=== PATIENT | female | born 2000 | race Caucasian/White ===

== ENCOUNTER → 2021-04-16 10:16 | Outpatient (BNVA) | payer OTHER, SELFPAY | PROVIDERS: Visit Provider Physician Assistant | DX: S46.911A Strain of unspecified muscle, fascia and tendon at shoulder and upper arm level, right arm, initial encounter (principal); X50.1XXA Overexertion from prolonged static or awkward postures, initial encounter | CPT/HCPCS: 73030; 99203 ==

== ENCOUNTER → 2021-04-25 13:13 | Outpatient (BNVA) | payer OTHER, SELFPAY | PROVIDERS: Visit Provider Physician Assistant | DX: S49.91XD Unspecified injury of right shoulder and upper arm, subsequent encounter (principal); X58.XXXD Exposure to other specified factors, subsequent encounter | CPT/HCPCS: 99213 ==

== ENCOUNTER → 2021-05-09 13:05 | Outpatient (BNVA) | payer OTHER, SELFPAY | PROVIDERS: Visit Provider Physician Assistant | DX: S49.91XD Unspecified injury of right shoulder and upper arm, subsequent encounter (principal); X58.XXXD Exposure to other specified factors, subsequent encounter | CPT/HCPCS: 99213 ==

== ENCOUNTER 2021-05-16 14:22 | Outpatient (REF) | payer OTHER, SELFPAY ==
--- NOTE | ~2021-05-16 | MR_ITS ---
EXAMINATION: MR SHOULDER WITHOUT CONTRAST, RIGHT CLINICAL INFORMATION: pain COMPARISON: X-rays of right shoulder March 2021 TECHNIQUE: MRI of the shoulder without contrast was performed on a high-field scanner. FINDINGS: ROTATOR CUFF: Intact. No muscle atrophy or fatty infiltration. BICEPS: Normal. CORACOACROMIAL ARCH: The undersurface of the acromion is curved with no subacromial spur. The acromioclavicular joint is normal. LABRUM/CAPSULE: Normal. GLENOHUMERAL JOINT/MARROW: Normal. MR/MR shoulder RT wo con IMPRESSION: Normal MRI of the right shoulder
== END 2021-05-16 14:23 | disposition home or self-care (01) ==
LOC: HO.MRI 14:22
PROVIDERS: Visit Provider Internal Medicine
DX: M25.511 Pain in right shoulder (principal)
CPT/HCPCS: 73221

== ENCOUNTER → 2021-05-23 14:09 | Outpatient (BNVA) | payer OTHER, SELFPAY | PROVIDERS: Visit Provider Physician Assistant | DX: M25.511 Pain in right shoulder (principal) | CPT/HCPCS: 99213 ==

== ENCOUNTER → 2021-06-13 14:28 | Outpatient (BNVA) | payer OTHER, SELFPAY | PROVIDERS: Visit Provider Physician Assistant | DX: S49.91XD Unspecified injury of right shoulder and upper arm, subsequent encounter (principal); X58.XXXD Exposure to other specified factors, subsequent encounter | CPT/HCPCS: 99213 ==

== ENCOUNTER 2022-07-26 13:51 | Outpatient (REF) | payer OTHER, SELFPAY ==
[2022-07-26 14:41] LABS: Influenza A PCR NEGATIVE (Negative); Influenza B PCR NEGATIVE (Negative); Resp Syncy Virus RNA Qual PCR NEGATIVE (Negative); SARS COV2 PCR INHOUSE NEGATIVE (Negative)
== END 2022-07-26 13:52 | disposition home or self-care (01) ==
LOC: HO.LNP 13:51
PROVIDERS: Visit Provider Nurse Practitioner Family
DX: J06.9 Acute upper respiratory infection, unspecified (principal); Z20.822 Contact with and (suspected) exposure to COVID-19
CPT/HCPCS: 0241U

== ENCOUNTER 2022-09-16 10:11 | Outpatient (REF) | payer OTHER, SELFPAY ==
[2022-09-16 14:04] LABS: MANUAL DIFF FLAG NO
[2022-09-16 14:08] LABS: Basophils Percent Auto 0.8 % (0-2); Eosinophils Absolute Auto 0.2 X10*3/uL (0.0-0.4); Eosinophils Percent Auto 3.4 % (0-4); Hematocrit 37.7 % (37.0-47.0); Hemoglobin 12.4 g/dl (12.0-16.0); Imm Gran Abs Auto 0.01 X10*3/uL (0.00-0.03); Imm Gran Pct Auto 0.2 % (0.0-0.4); Lymphocytes Absolute Auto 2.4 X10*3/uL (1.2-4.9); Lymphocytes Percent Auto 47.9 % (20-40); Mean Corpuscular HGB Conc 32.9 g/dl (31.0-35.0); Mean Corpuscular Hemoglobin 28.6 pg (27.0-33.0); Mean Corpuscular Volume 87.1 fL (80.0-98.0); Mean Platelet Volume 9.7 fL (9.4-12.3); Monocytes Absolute Auto 0.5 X10*3/uL (0.1-1.2); Monocytes Percent Auto 8.9 % (2-11); Neutrophils Percent Auto 38.8 % (45-73); Platelet Count 323 X10*3/uL (160-400); Red Blood Count 4.33 X10*6/uL (4.20-5.50); Red Cell Distribution Width 12.9 % (11.0-16.0); White Blood Count 5.1 X10*3/uL (4.8-10.8)
[2022-09-16 14:24] LABS: Alanine Aminotransferase 12 U/L (0-31); Albumin Level 3.9 g/dL (3.5-5.0); Alkaline Phosphatase 57 U/L (39-117); Anion Gap 13 (12-20); Aspartate Amino Transferase 13 U/L (5-31); Bilirubin Total 0.4 mg/dL (0.0-1.0); Blood Urea Nitrogen 12 mg/dL (9-16); Calcium 9.6 mg/dL (8.4-10.2); Carbon Dioxide 22 mmol/L (22-29); Chloride 108 mmol/L (96-108); Cholesterol 180 mg/dL; Estimated Glomerular Filt Rate > 60; Glucose Fasting 88 mg/dL (60-99); HDL Cholesterol 64 mg/dL; Iron 56 mcg/dL (30-160); LDL Cholesterol Calculated 101 mg/dl; Percent Iron Saturation 13 % (15-50); Potassium 4.1 mmol/L (3.3-5.1); Sodium 139 mmol/L (135-145); Total Iron Binding Capacity 444 mcg/dL (228-428); Total Protein 6.8 g/dL (6.5-8.0); Triglycerides 78 mg/dL; Unsaturated Iron Binding 388 ug/dL
[2022-09-16 14:40] LABS: Syphilis Screen Nonreactive (Nonreactive)
[2022-09-16 14:48] LABS: TSH reflex Free T4 2.24 uIU/mL (0.32-4.0)
[2022-09-17 08:05] LABS: HBS Num1 1.05 mIU/mL (0-7.99); HBc Num1 0.25 S/CO (0.00-0.79); HBsAGNum1 0.26 S/CO (0.00-0.99); HIV AB/AG Nonreactive (Nonreactive); HIV Num 1 0.06 S/CO (0.00-0.99); Hepatitis B Core Antibody Nonreactive (Nonreactive); Hepatitis B Surface Antigen Negative (Negative); ~HepC Num1 0.12 S/CO (0.00-0.79); ~Hepatitis B Surface Antibody NONREACTIVE (Nonreactive); ~Hepatitis C Antibody Nonreactive (Nonreactive)
== END 2022-09-16 10:12 | disposition home or self-care (01) ==
LOC: HO.WFDLDS 10:11
PROVIDERS: Visit Provider Family Medicine
DX: Z00.00 Encounter for general adult medical examination without abnormal findings (principal); Z11.3 Encounter for screening for infections with a predominantly sexual mode of transmission; Z86.39 Personal history of other endocrine, nutritional and metabolic disease
CPT/HCPCS: 36415; 80053; 80061; 83540; 84443; 85025; 86704; 86706; 86780; 86803; 87340; 87389

== ENCOUNTER 2022-09-17 10:16 | Outpatient (REF) | payer OTHER, SELFPAY ==
[2022-09-17 14:10] LABS: Appearance Urine Cloudy; Color Urine Yellow; Glucose Urine UA Negative (Negative); Leukocyte Esterase Urine Moderate (2+) (Negative); Nitrite Urine Negative (Negative); Specific Gravity - Urine >= 1.030 (1.005-1.025); UMIC TRIGGER UA YES; Urine Blood Trace (Negative); Urine Ketones Negative (Negative); Urine Protein Negative (Neg-Trace)
[2022-09-17 14:23] LABS: Bacteria Urine 4+ (None Seen); Calcium Oxalate Crystals Urine Present; Squamous Epithelial Cell Urine >20 /HPF (0-2); WBC Urine >50 /HPF (0-5)
== END 2022-09-17 10:17 | disposition home or self-care (01) ==
LOC: HO.WFDLNP 10:16
PROVIDERS: Visit Provider Family Medicine
DX: Z00.00 Encounter for general adult medical examination without abnormal findings (principal)
CPT/HCPCS: 81001

== ENCOUNTER 2023-02-04 12:45 | Emergency (ER) | payer OTHER, SELFPAY ==
[2023-02-04 13:14] VITALS: BP 126/80; PULSE 67; RESP 16; TEMP 37.2; O2SAT 99; BMI 23.0
--- NOTE | 2023-02-04 13:16 | ED.FEMALEGU ---
HPI - Female Genitourinary General Chief complaint: Vaginal Bleeding <KENNETH Hernandez - Last Filed: 02/04/23 13:17> Stated complaint: Vag Bleed <KENNETH Hernandez - Last Filed: 02/04/23 13:17> Time Seen by Provider: 02/04/23 14:31 <KENNETH Hernandez - Last Filed: 02/04/23 13:17> Source: patient <KENNETH Woodward - Last Filed: 02/04/23 14:55> Mode of arrival: ambulatory <KENNETH Woodward Last Filed: 02/04/23 14:55> Limitations: no limitations <KENNETH Woodward Last Filed: 02/04/23 14:55> History of Present Illness HPI Narrative: 22 yo female presents to the ER for evaluation of vaginal bleeding that started last night. She states she had her usual 7 day period for the month that started 01/21 and ended 01/28. She has a history of heavy vaginal bleeding during her regular menses, and it is usually 7 days in duration. She is on OCP which has helped her pain with her periods. She does not have pain like she used to before OCP. She currently has no pain, just light bleeding. No weakness, dizziness, SOB. No hx anemia. She does not have [employer] S[employer]IATE. No hx . She denies vaginal discharge or concern for STI. <KENNETH Woodward - Last Filed: 02/04/23 14:55> MD elicited complaint: vaginal bleeding <KENNETH Woodward Last Filed: 02/04/23 14:55> Onset (ago): day(s) (1) <KENNETH Woodward Last Filed: 02/04/23 14:55> Location of symptoms: vaginal <KENNETH Woodward Last Filed: 02/04/23 14:55> Severity: moderate <KENNETH Woodward Last Filed: 02/04/23 14:55> Consistency: intermittent <KENNETH Woodward Last Filed: 02/04/23 14:55> Vaginal discharge: none <KENNETH Woodward Last Filed: 02/04/23 14:55> Vaginal bleeding: scant <KENNETH Woodward - Last Filed: 02/04/23 14:55> Exacerbating factors: none <KENNETH Woodward - Last Filed: 02/04/23 14:55> Relieving factors: none <KENNETH Woodward - Last Filed: 02/04/23 14:55> Associated symptoms: denies other symptoms <KENNETH Woodward - Last Filed: 02/04/23 14:55> Treatment prior to arrival: none <KENNETH Woodward - Last Filed: 02/04/23 14:55> Sexual activity: Yes <KENNETH Woodward - Last Filed: 02/04/23 14:55> Possible : unsure if <EKNNETH Woodward - Last Filed: 02/04/23 14:55> Date of Last Menstrual Period: 01/21/23 <KENNETH Woodward - Last Filed: 02/04/23 14:55> Related Data Home medications: Home Medications Medication Instructions Recorded Confirmed desogestrel 0.15 mg-ethinyl 1 tab PO QAM 08/07/22 estradiol 0.03 mg tablet (Enskyce) melatonin 10 mg capsule 10 mg PO BEDTIME PRN 08/07/22 <KENNETH Hernandez - Last Filed: 02/04/23 13:17> Allergies/Adverse reactions: Allergies Allergy/AdvReac Type Severity Reaction Status Date / Time No Known Allergies Allergy Verified 10/11/22 14:01 <KENNETH Hernandez - Last Filed: 02/04/23 13:17> Review of Systems Review of Systems: Yes all other systems are reviewed and are negative <KENNETH Woodward - Last Filed: 02/04/23 14:55> PMFSH Past Medical History Date of Last Menstrual Period: 01/21/23 <KENNETH Woodward - Last Filed: 02/04/23 14:55> Social History Social History: Social History Patient Tobacco Use Status: Never used Tobacco e-Cigarette/Vaping Use: Never Used Second Hand Smoke Exposure: No Advance Directives: No service: No Current occupational status: employed Cognitive needs: No Hearing needs: No Vision needs: No <KENNETH Hernandez - Last Filed: 02/04/23 13:17> Physical Exam Vital Signs: Vital Signs: Last Vital Signs Temp 98.9 F 02/04/23 13:14 Pulse 67 02/04/23 13:14 Resp 16 02/04/23 13:14 BP 126/80 02/04/23 13:14 Pulse Ox 99 02/04/23 13:14 O2 Del Method Room Air 02/04/23 13:14 BMI result Body Mass Index 23.0 <KENNETH Hernandez - Last Filed: 02/04/23 13:17> Vital Signs: Last Vital Signs Temp 98.9 F 02/04/23 13:14 Pulse 67 02/04/23 13:14 Resp 16 02/04/23 13:14 BP 126/80 02/04/23 13:14 Pulse Ox 99 02/04/23 13:14 O2 Del Method Room Air 02/04/23 13:14 BMI result Body Mass Index 23.0 <KENNETH Woodward - Last Filed: 02/04/23 14:55> Appearance: Alert. Oriented X3. No acute distress. Head: normocephalic, atraumatic. Eyes: Pupils equal, round and reactive to light. ENT: Pharynx normal. No tonsillar swelling or exudate. Neck: Normal inspection. Neck supple. CVS: Normal heart rate and rhythm. Pulses normal. Respiratory: No respiratory distress. Breath sounds normal. Abdomen: Soft and nontender. +BS x4 Pelvic: normal exernal inspection. vaginal canal with light brown discharge, os closed, no active bleeding Skin: Skin warm and dry. Normal skin color. Normal skin turgor. No rashes. Extremities: No lower extremity edema. No joint swelling. Neuro/psych: Oriented X 3. No motor deficit. No sensory deficit. CN II-XII intact. Normal speech and cognition. <KENNETH Woodward - Last Filed: 02/04/23 14:55> Course Course Course Narrative: This is an RME: Additional HPI, ROS, PE not included below will be deferred to primary provider. 22-year-old female presents to the emergency department for evaluation of vaginal bleeding since 19:00 yesterday, patient tells me she is going through 4 pads in 24 hours. She reports her period ended last week and she typically does not get irregular cycles is concerned since she is bleeding again. Does not think she is . She is on oral contraceptives. Sometimes gets intermittent suprapubic tenderness. Pain-free at this time. Denies nausea, vomiting, headache, vision changes, dizziness, weakness, fevers and chills. Physical exam benign. Hemodynamically stable. Plan basic labs. HCG. <KENNETH Hernandez - Last Filed: 02/04/23 13:17> Medical Decision Making Medical Decision Making [facility] Narrative: 22 yo female presenting with abnormal vaginal bleeding 1 week after her menstrual cycle. No active bleeding on exam today. Scant amount of of old blood in vaginal canal no active bleeding or discharge. H/H stable, no anemia. She is already on OCP. She does not have [employer]ATE. She is stable for d/c home with plan to continue OCP adn f/u with [employer] S[employer]IOR ASSOCIATE for full exam and other treatment options. <KENNETH Woodward - Last Filed: 02/04/23 14:55> Differential Diagnosis Differential Diagnoses: The differential diagnosis associated with the presentation includes <KENNETH Woodward - Last Filed: 02/04/23 14:55> dysfunction uterine bleeding. , anemia, menometorrhagia <KENNETH Woodward - Last Filed: 02/04/23 14:55> Lab Data [facility] Lab Attestation statement: I reviewed the patient's lab results. <KENNETH Woodward - Last Filed: 02/04/23 14:55> no anemia. <KENNETH Woodward - Last Filed: 02/04/23 14:55> Result Diagrams: 02/04/23 13:50 02/04/23 13:50 <KENNETH Hernandez - Last Filed: 02/04/23 13:17> Labs: Lab Results 02/04/23 02/04/23 Range/Units 13:50 13:50 WBC 5.8 (4.8-10.8) X10*3/uL RBC 4.71 (4.20-5.50) X10*6/uL Hgb 13.8 (12.0-16.0) g/dl Hct 41.3 (37.0-47.0) % MCV 87.7 (80.0-98.0) fL MCH 29.3 (27.0-33.0) pg MCHC 33.4 (31.0-35.0) g/dl RDW 12.9 (11.0-16.0) % Plt Count 336 (160-400) X10*3/uL MPV 9.2 L (9.4-12.3) fL Immature Gran % (Auto) 0.3 (0.0-0.4) % Neut % (Auto) 55.0 (45-73) % Lymph % (Auto) 35.6 (20-40) % [place] % (Auto) 7.5 (2-11) % Eos % (Auto) 0.7 (0-4) % Baso % (Auto) 0.9 (0-2) % Lymph # (Auto) 2.1 (1.2-4.9) X10*3/uL [place] # (Auto) 0.4 (0.1-1.2) X10*3/uL Eos # (Auto) 0.0 (0.0-0.4) X10*3/uL Baso # (Auto) 0.1 (0.0-0.2) X10*3/uL Abs Immat Gran (auto) 0.02 (0.00-0.03) X10*3/uL Absolute Neuts (auto) 3.2 (2.0-8.3) x10*3/uL Absolute Nucleated RBC 0.000 (0.0-0.012) X10*3/uL Nucleated RBC % (auto) 0.0 (0.0-0.2) /100WBC Sodium 139 (135-145) mmol/L Potassium 4.3 (3.3-5.1) mmol/L Chloride 110 H (96-108) mmol/L Carbon Dioxide 22 (22-29) mmol/L Anion Gap 11 L (12-20) BUN 9 (9-16) mg/dL Creatinine 0.72 (0.5-1.4) mg/dL Estim Creat Clear Calc 102.2 Estimated GFR > 60 Random Glucose 89 (60-115) mg/dL Calcium 9.5 (8.4-10.2) mg/dL Magnesium 2.0 (1.6-2.6) mg/dL Total Bilirubin 0.6 (0.0-1.0) mg/dL AST 14 (5-31) U/L ALT 10 (0-31) U/L Alkaline Phosphatase 62 (39-117) U/L Total Protein 7.0 (6.5-8.0) g/dL Albumin 4.1 (3.5-5.0) g/dL Beta HCG, Quant < 2 mIU/mL <KENNETH Hernandez - Last Filed: 02/04/23 13:17> Lab Results 02/04/23 02/04/23 Range/Units 13:50 13:50 WBC 5.8 (4.8-10.8) X10*3/uL RBC 4.71 (4.20-5.50) X10*6/uL Hgb 13.8 (12.0-16.0) g/dl Hct 41.3 (37.0-47.0) % MCV 87.7 (80.0-98.0) fL MCH 29.3 (27.0-33.0) pg MCHC 33.4 (31.0-35.0) g/dl RDW 12.9 (11.0-16.0) % Plt Count 336 (160-400) X10*3/uL MPV 9.2 L (9.4-12.3) fL Immature Gran % (Auto) 0.3 (0.0-0.4) % Neut % (Auto) 55.0 (45-73) % Lymph % (Auto) 35.6 (20-40) % [place] % (Auto) 7.5 (2-11) % Eos % (Auto) 0.7 (0-4) % Baso % (Auto) 0.9 (0-2) % Lymph # (Auto) 2.1 (1.2-4.9) X10*3/uL [place] # (Auto) 0.4 (0.1-1.2) X10*3/uL Eos # (Auto) 0.0 (0.0-0.4) X10*3/uL Baso # (Auto) 0.1 (0.0-0.2) X10*3/uL Abs Immat Gran (auto) 0.02 (0.00-0.03) X10*3/uL Absolute Neuts (auto) 3.2 (2.0-8.3) x10*3/uL Absolute Nucleated RBC 0.000 (0.0-0.012) X10*3/uL Nucleated RBC % (auto) 0.0 (0.0-0.2) /100WBC Sodium 139 (135-145) mmol/L Potassium 4.3 (3.3-5.1) mmol/L Chloride 110 H (96-108) mmol/L Carbon Dioxide 22 (22-29) mmol/L Anion Gap 11 L (12-20) BUN 9 (9-16) mg/dL Creatinine 0.72 (0.5-1.4) mg/dL Estim Creat Clear Calc 102.2 Estimated GFR > 60 Random Glucose 89 (60-115) mg/dL Calcium 9.5 (8.4-10.2) mg/dL Magnesium 2.0 (1.6-2.6) mg/dL Total Bilirubin 0.6 (0.0-1.0) mg/dL AST 14 (5-31) U/L ALT 10 (0-31) U/L Alkaline Phosphatase 62 (39-117) U/L Total Protein 7.0 (6.5-8.0) g/dL Albumin 4.1 (3.5-5.0) g/dL Beta HCG, Quant < 2 mIU/mL <KENNETH oWodward - Last Filed: 02/04/23 14:55> External Record Review External record reviewed: Prior outpatient labs <KENNETH Woodward Last Filed: 02/04/23 14:55> Critical Care Time Critical Care Time Critical Care Time: No <KENNETH Woodward Last Filed: 02/04/23 14:55> Discharge Plan Discharge Clinical Impression: Dysfunctional uterine bleeding <KENNETH Hernandez Last Filed: 02/04/23 13:17> Patient Disposition: Home, Self-Care <KENNETH Hernandez Last Filed: 02/04/23 13:17> Instructions: Dysfunctional Uterine Bleeding (ED) <KENNETH Hernandez Last Filed: 02/04/23 13:17> Additional Instructions: Your blood counts today were normal, no anemia Your exam was normal Continue your control pills Recommend you follow up with [employer] - name and number below If you develop new or worsening symptoms call 911 or come back to the ER for further evaluation. <KENNETH Hernandez - Last Filed: 02/04/23 13:17> Prescriptions: No Action melatonin 10 mg capsule 10 mg PO BEDTIME PRN desogestrel-ethinyl estradiol [Enskyce] 0.15-0.03 mg tablet 1 tab PO QAM <KENNETH Hernandez - Last Filed: 02/04/23 13:17> Referrals: Faraz Khan MD [Physician] - <KENNETH Hernandez - Last Filed: 02/04/23 13:17>
[2023-02-04 13:55] LABS: MANUAL DIFF FLAG NO
[2023-02-04 13:57] LABS: Basophils Absolute Auto 0.1 X10*3/uL (0.0-0.2); Basophils Percent Auto 0.9 % (0-2); Eosinophils Percent Auto 0.7 % (0-4); Hematocrit 41.3 % (37.0-47.0); Hemoglobin 13.8 g/dl (12.0-16.0); Imm Gran Abs Auto 0.02 X10*3/uL (0.00-0.03); Imm Gran Pct Auto 0.3 % (0.0-0.4); Lymphocytes Absolute Auto 2.1 X10*3/uL (1.2-4.9); Lymphocytes Percent Auto 35.6 % (20-40); Mean Corpuscular HGB Conc 33.4 g/dl (31.0-35.0); Mean Corpuscular Hemoglobin 29.3 pg (27.0-33.0); Mean Corpuscular Volume 87.7 fL (80.0-98.0); Mean Platelet Volume 9.2 fL (9.4-12.3); Monocytes Absolute Auto 0.4 X10*3/uL (0.1-1.2); Monocytes Percent Auto 7.5 % (2-11); Neutrophils Absolute Auto 3.2 x10*3/uL (2.0-8.3); Platelet Count 336 X10*3/uL (160-400); Red Blood Count 4.71 X10*6/uL (4.20-5.50); Red Cell Distribution Width 12.9 % (11.0-16.0); White Blood Count 5.8 X10*3/uL (4.8-10.8)
[2023-02-04 14:20] LABS: Alanine Aminotransferase 10 U/L (0-31); Albumin Level 4.1 g/dL (3.5-5.0); Alkaline Phosphatase 62 U/L (39-117); Anion Gap 11 (12-20); Aspartate Amino Transferase 14 U/L (5-31); Bilirubin Total 0.6 mg/dL (0.0-1.0); Blood Urea Nitrogen 9 mg/dL (9-16); Calcium 9.5 mg/dL (8.4-10.2); Carbon Dioxide 22 mmol/L (22-29); Chloride 110 mmol/L (96-108); Creatinine Clr Calc Pharmacy 102.2; Estimated Glomerular Filt Rate > 60; Glucose Random 89 mg/dL (60-115); Potassium 4.3 mmol/L (3.3-5.1); Sodium 139 mmol/L (135-145)
[2023-02-04 14:24] LABS: HCG Quantitative < 2 mIU/mL
== END 2023-02-04 15:05 | disposition home or self-care (01) ==
PROVIDERS: Physician Assistant; Emergency Provider Emergency Medicine; PCP Family Medicine
DX: N93.8 Other specified abnormal uterine and vaginal bleeding (principal); Z79.899 Other long term (current) drug therapy
CPT/HCPCS: 36415; 80053; 83735; 84702; 85025; 99282; 99283

== ENCOUNTER 2023-10-15 15:53 | Outpatient (AMB) | payer OTHER, SELFPAY ==
[2023-10-15 15:57] VITALS: BP 116/72; PULSE 78; RESP 16; TEMP 36.9; O2SAT 99; BMI 23.8
--- NOTE | 2023-10-15 15:57 | A.OFFPC_ITS ---
Vital Signs 10/15/23 15:57 Height 5 ft 3 in Weight 134 lb 4 oz BMI 23.8 BP 116/72 Blood Pressure Location Rt brachial Position Sitting Respiration 16 Pulse 78 Pulse Source Pulse Oximeter Temp 98.4 F Temp Source Oral Pulse Oximetry (%) 99 Oxygen Delivery Method Room Air Intake Visit Reasons: Extended exam with f/u labs and health maintenance Intake Note: Patient is here for extended exam and would like to have her thyroid levels checked. Allergies No Known Allergies Allergy (Verified 10/15/23 16:02) Tobacco use date assessed: 10/15/23 Dental Screening Dental Screen Date: 10/15/23 Did you have a dental visit in the last 12 months?: Yes Did you have a dental problem in the last 6 months where you did not have access to dental care?: No Was dental information given to patient?: Patient has dentist HPI Extended exam with f/u labs and health maintenance HPI Details 23 y/o female presents for an extended e xam with f/u labs and health maintenance. Labwork from January looked fine. Otherwise no recent labs to review. [facility] Medical History (Updated 10/15/23 @ 16:38 by James Paris) Cataracts, both eyes Social History Housing: House Patient Tobacco Use Status: Never used Tobacco e-Cigarette/Vaping Use: Never Used Second Hand Smoke Exposure: No service: No Current occupational status: employed Cognitive needs: No Hearing needs: No Vision needs: No Questionnaire Thrive Questionnaire Date Thrive assessed: 10/11/22 SANYA-7 AMB Questionnaire SANYA-7 Date SANYA - 7 assessed: 10/11/22 Source: Developed by Drs. Gumaro Cardenas, Lynette Hilario, Ainsh Ramirez and colleagues, with an educational joselin from [employer]. Physical exam (Primary Care) Vital Signs: Last Vital Signs Temp 98.4 F 10/15/23 15:57 Pulse 78 10/15/23 15:57 Resp 16 10/15/23 15:57 BP 116/72 10/15/23 15:57 Pulse Ox 99 10/15/23 15:57 Oxygen Delivery Method Room Air 10/15/23 15:57 BMI result Body Mass Index 23.8 Tobacco/Smoking Status: Tobacco use Status Tobacco use date assessed 10/15/23 10/15/23 16:11 Patient Tobacco Use Status Never used Tobacco 10/15/23 15:57 e-Cigarette/Vaping Use Never Used 10/15/23 15:57 Thrive Assessment: Date of Thrive Assessment Date Thrive assessed 10/11/22 10/15/23 15:57 Neck Other: 1cm by 1.5cm posterolateral lump on R side of her neck, mobile, firm Assessment and Plan Assessment & Plan (1) Adult general medical exam: Code(s): Z00.00 - Encounter for general adult medical examination without abnormal find ings Plan: 23-year-old?female?presents?for?complete?physical?exam Exam?within?normal?limits (2) Constipation: Code(s): K59.00 - Constipation, unspecified Plan: Complaints?of?constipation?and?I?advised?she?increase?her?hydration?and?sh e?can?try?soluble?fiber?OTC (3) Screening for cervical cancer: Code(s): Z12.4 - Encounter for screening for malignant neoplasm of cervix Plan: 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
== END 2023-10-15 16:41 | disposition home or self-care (01) ==
PROVIDERS: Visit Provider Family Medicine
DX: Z00.00 Encounter for general adult medical examination without abnormal findings (principal); K59.00 Constipation, unspecified; R22.1 Localized swelling, mass and lump, neck
CPT/HCPCS: 99395

== ENCOUNTER 2023-10-27 11:08 | Outpatient (REF) | payer OTHER, SELFPAY | END 2023-10-27 11:09 | disposition home or self-care (01) | LOC: HO.WFDLDS 11:08 | PROVIDERS: Visit Provider Family Medicine | DX: Z00.00 Encounter for general adult medical examination without abnormal findings (principal); Z86.39 Personal history of other endocrine, nutritional and metabolic disease | CPT/HCPCS: 36415; 80053; 80061; 83540; 84443; 85025 ==

== ENCOUNTER 2023-11-06 15:05 | Outpatient (REF) | payer OTHER, SELFPAY ==
--- NOTE | ~2023-11-06 | US_ITS ---
EXAMINATION: US SOFT TISSUE OF THE NECK CLINICAL INFORMATION: Localized swelling, mass and lump, neck. COMPARISON: None available. TECHNIQUE: Linear transducer grayscale and color Doppler examination of the right posterior neck. FINDINGS: Targeted ultrasound images were obtained by the crushed stone grader of the area of concern as indicated by the patient in the right posterior neck and demonstrated a 1.1 x 0.3 x 0.9 cm reniform mass with echogenic hilum characteristic of a lymph node. Radiologist was not in attendance. Images were later provided for interpretation. US/US soft tiss head and/or neck IMPRESSION: A 1 cm lymph node in the area of concern as indicated by the patient in the right posterior neck. Correlation with the clinical exam recommended to determine further management. Follow-up ultrasound should be obtained in 3 months.
== END 2023-11-06 15:06 | disposition home or self-care (01) ==
LOC: HO.US 15:05
PROVIDERS: PCP Family Medicine; Visit Provider Family Medicine
DX: R22.1 Localized swelling, mass and lump, neck (principal)
CPT/HCPCS: 76536

== ENCOUNTER 2023-11-19 14:10 | Outpatient (REF) | payer OTHER, SELFPAY ==
[2023-11-19 14:35] LABS: Appearance Urine Turbid; Color Urine Yellow; Glucose Urine UA Negative (Negative); Leukocyte Esterase Urine Large (3+) (Negative); Nitrite Urine Negative (Negative); Specific Gravity - Urine 1.015 (1.005-1.025); UMIC TRIGGER UA YES; Urine Blood Trace (Negative); Urine Ketones Negative (Negative); Urine Protein Trace mg/dL (Neg-Trace)
[2023-11-19 15:17] LABS: Bacteria Urine 4+ (None Seen); Hyaline Casts Urine 0-2 /LPF (0-2); WBC Urine >50 /HPF (0-5)
== END 2023-11-19 14:11 | disposition home or self-care (01) ==
LOC: HO.LNP 14:10
PROVIDERS: Visit Provider Family Medicine
DX: Z00.00 Encounter for general adult medical examination without abnormal findings (principal)
CPT/HCPCS: 81001

== ENCOUNTER 2023-11-24 15:30 | Outpatient (AMB) | payer OTHER, SELFPAY ==
--- NOTE | 2023-11-24 14:19 | A.OFFPC_ITS ---
Intake Visit Reasons: f/u labs and ultrasound Allergies No Known Allergies Allergy (Verified 11/24/23 14:19) Tobacco use date assessed: 11/24/23 Dental Screening Dental Screen Date: 11/24/23 Did you have a dental visit in the last 12 months?: Yes Did you have a dental problem in the last 6 months where you did not have access to dental care?: No Was dental information given to patient?: Patient has dentist HPI f/u labs and ultrasound HPI Details 23 y/o female presents to f/u labs and u ltrasound. Labs were drawn 10/27/23. Reviewed labs with pt. Triglycerides 132. TC 192. LDL 105. HDL 61. 4+ urine bacteria seen. Had sent her ma nahmoyd but she states she did not know anything about this. She denies any urinary symptoms. Head/neck ultrasound 11/06/23 shows 1 cm lymph node in area of concern as indicated by pt in R posterior neck. F/u ultrasound in 3 months recommended. [facility] Medical History Cataracts, both eyes Social History Housing: House Patient Tobacco Use Status: Never used Tobacco e-Cigarette/Vaping Use: Never Used Second Hand Smoke Exposure: No service: No Current occupational status: employed Cognitive needs: No Hearing needs: No Vision needs: No Questionnaire PHQ-9 Over the last 2 weeks, how often have you been bothered by any of the following problems? 1. Little interest or pleasure in doing things: not at all 2. Feeling down, depressed, or hopeless: not at all 3. Trouble falling or staying asleep, or sleeping too much: not at all 4. Feeling tired or having little energy: not at all 5. Poor appetite or overeating: not at all 6. Feeling bad about yourself - or that you are a failure or have let yourself or your family down: not at all 7. Trouble concentrating on things, such as reading the newspaper or watching television: not at all 8. Moving or speaking so slowly that other people could have noticed. Or the opposite - being so fidgety or restless that you have been moving around a lot more than usual: not at all 9. Thoughts that you would be better off or of hurting yourself in some way: not at all Total score: 0 Source: Developed by Lynette Barahona Kurt Kroenke and colleagues, with an educational joselin from [employer]. Thrive Questionnaire Date Thrive assessed: 11/24/23 I am a: Patient What is your living situation today?: I have a steady place to live Within the past 12 months, did the food you bought not last and you didn't have the money to get more?: Never true Within the past 12 months, did you worry whether your food would run out before you got money to buy more?: Never true Do you have trouble paying for medicines?: No Do you have trouble getting transportation to medical appointments?: No Do you have trouble paying your heating and electricity bill?: No Do you have trouble taking care of your child, family member or friend?: No Do you have trouble with day-to-day activities such as bathing, preparing meals, shopping, managing finances, etc.?: No Are you currently unemployed and looking for a job?: No Are you interested in more education?: No THRIVE Score: 0 AUDIT C Alcohol Use Questionnaire (AUDIT-C) 1. How often do you have a drink containing alcohol?: Never 3. How often do you have six or more drinks on one occasion?: Never Total Score: 0 SANYA-7 AMB Questionnaire SANYA-7 Date SANYA - 7 assessed: 11/24/23 Feeling nervous, anxious, or on edge: 0 = Not at all Not being able to stop or control worryin = Not at all Worrying too much about different things: 0 = Not at all Trouble relaxin = Not at all Being so restless that it is hard to sit still: 0 = Not at all Becoming easily annoyed or irritable: 0 = Not at all Feeling afraid as if something awful might happen: 0 = Not at all Total SANYA-7 score (0-4 normal; 5-9 mild; 10-14 moderate; 15-21 severe): 0 Source: Developed by Lynette Barahona Kurt Kroenke and colleagues, with an educational joselin from [employer] Review of Systems Const Denies chills, Denies fatigue, Denies fever(s), Denies headache(s) and Denies weakness ENT Denies dizziness and Denies headache(s) Card Denies dyspnea Resp Denies cough, Denies dyspnea, Denies wheezing and Denies other (shortness of breath) Musc Denies numbness and Denies tingling Neuro Denies dizziness, Denies headache(s), Denies numbness, Denies tingling and Denies weakness Psych Denies anxiety and Denies depression Endo Denies fatigue Aller/Immun Denies wheezing Physical exam (Primary Care) Tobacco/Smoking Status: Tobacco use Status Tobacco use date assessed 11/24/23 11/24/23 14:20 Patient Tobacco Use Status Never used Tobacco 11/24/23 14:20 e-Cigarette/Vaping Use Never Used 11/24/23 14:20 PHQ-9: PHQ-9 Score PHQ-9: Total score 0 11/24/23 16:21 Thrive Assessment: Date of Thrive Assessment Date Thrive assessed 11/24/23 11/24/23 14:23 Telehealth Telehealth Location of provider rendering services: practice address Location of patient: address on file Patient Identification confirmed using: Name, : Yes Telehealth method: voice only Patient verbally consented to treatment: Yes Patient verbally consented to billing insurance company: Yes Patient informed of any privacy concerns related to visit: Yes Minutes spent on Phone/Video with Pt.: 5 Assessment and Plan Assessment & Plan (1) Neck mass: Code(s): R22.1 - Localized swelling, mass and lump, neck Plan: Ultrasound?shows?lymph?node?at?area?of?concern. CBC?is?okay This?is?likely?a?reactive?lymph?node.??Radiologist?recommended?a?3?month?follow- up?which?is?ordered (2) Bacteria in urine: Code(s): R82.71 - Bacteriuria Plan: Had?sent?a?script?for?nitrofurantoin. However,?patient?did?not?pick?this?up.??She?has?had?no?symptoms. Will?have?her?hydrate?well?and?repeat?urine?studies If?still?abnormal,?will?have?her?pick?up?script Orders: Orders US soft tiss head and/or neck Today R22.1 - Localized swelling, mass and lump, neck UA and rflx microscopic Today R82.71 - Bacteriuria, Z00.00 - Encounter for general adult medical examination without abnormal findings Urine Culture Today R82.71 - Bacteriuria Coding Level of Care Code Tele Est Pt Level 2 (71170) Diagnoses Neck mass R22.1 Bacteria in urine R82.71
== END 2023-11-24 17:00 ==
LOC: HO.HMGFM 15:30
PROVIDERS: PCP Family Medicine; Visit Provider Family Medicine
DX: R22.1 Localized swelling, mass and lump, neck (principal); R82.71 Bacteriuria
CPT/HCPCS: 99212

== ENCOUNTER 2023-11-25 12:30 | Outpatient (REF) | payer OTHER, SELFPAY ==
[2023-11-25 14:38] LABS: Appearance Urine Hazy; Color Urine Yellow; Glucose Urine UA Negative (Negative); Leukocyte Esterase Urine Small (1+) (Negative); Nitrite Urine Negative (Negative); UMIC TRIGGER UA YES; Urine Blood Trace (Negative); Urine Ketones Negative (Negative); Urine Protein Negative (Neg-Trace)
[2023-11-25 14:49] LABS: Bacteria Urine 3+ (None Seen); Hyaline Casts Urine 0-2 /LPF (0-2); WBC Urine 21-50 /HPF (0-5)
== END 2023-11-25 12:31 | disposition home or self-care (01) ==
LOC: HO.LNP 12:30
PROVIDERS: Visit Provider Family Medicine
DX: R82.71 Bacteriuria (principal)
CPT/HCPCS: 81001; 87086

== ENCOUNTER 2023-12-25 15:30 | Outpatient (REF) | payer OTHER, SELFPAY ==
--- NOTE | ~2023-12-25 | US_ITS ---
EXAMINATION: US SOFT TISSUE HEAD/NECK CLINICAL INFORMATION: Localized swelling, mass and lump, neck. 3-month follow up. COMPARISON: Ultrasound soft tissue head/neck 11/06/2023. TECHNIQUE: Linear transducer becker-scale and color Doppler examination with attention to the region of the right posterior neck.Radiologist was not in attendance. Images were later provided for interpretation. FINDINGS: Targeted ultrasound images were obtained by the ui ux developer of the area of concern as indicated by the patient in the right posterior neck in the level 5 region and demonstrated a 0.7 x 0.3 x 0.6 cm lymph node, which previously measured 1.1 x 0.3 x 0.9 cm and again demonstrates an echogenic hilum, characteristic of a lymph node. US/US soft tiss head and/or neck IMPRESSION: 0.7 x 0.3 x 0.6 cm lymph node in the area indicated by the patient in the right posterior neck, previously measured 1.1 x 0.3 x 0.9 cm.
== END 2023-12-25 15:31 | disposition home or self-care (01) ==
LOC: HO.US 15:30
PROVIDERS: PCP Family Medicine; Visit Provider Family Medicine
DX: R22.1 Localized swelling, mass and lump, neck (principal)
CPT/HCPCS: 76536

== ENCOUNTER 2024-02-26 14:39 | Outpatient (AMB) | payer OTHER, SELFPAY ==
--- NOTE | 2024-02-26 14:42 | A.OFFPC_ITS ---
Vital Signs 02/26/24 14:44 Height 5 ft 3 in Weight 144 lb 9 oz BMI 25.6 BP 112/68 Blood Pressure Location Lt brachial Position Sitting Pulse 103 H Pulse Source Pulse Oximeter Pulse Oximetry (%) 98 Oxygen Delivery Method Room Air Intake Visit Reasons: 3m-4m f/u Ultrasound Appt Intake Note: Patient is here for ultraound follow up on her neck. Accompanied by: boyfriend Allergies No Known Allergies Allergy (Verified 02/26/24 14:44) Tobacco use date assessed: 02/26/24 Dental Screening Dental Screen Date: 02/26/24 Did you have a dental visit in the last 12 months?: Yes Did you have a dental problem in the last 6 months where you did not have access to dental care?: No Was dental information given to patient?: Patient has dentist HPI 3m-4m f/u Ultrasound Appt HPI Details Pt presents to f/u concern for lump?found?to?be?Lymph Node, palpated at R posterolateral neck. Had?sent?her?for?an?ultrasound?in?September?and?findings?were?consistent?with?a?l ymph?node?but?a?3?month?follow-up?was?recommended. Recent?follow-up: IMPRESSION: 0.7 x 0.3 x 0.6 cm lymph node in the are a indicated by the patient in the right posterior neck, previously measured 1.1 x 0.3 x 0.9 cm. Lymph?node?has?decreased?in?size PFSH Medical History Cataracts, both eyes Family History (Updated 02/26/24 @ 14:47 by Shruthi Jacinto CMA) Father Mental health disorder Mother Mental health disorder Social History Housing: House Patient Tobacco Use Status: Never used Tobacco e-Cigarette/Vaping Use: Never Used Second Hand Smoke Exposure: No service: No Current occupational status: employed Cognitive needs: No Hearing needs: No Vision needs: No Questionnaire Thrive Questionnaire Date Thrive assessed: 11/24/23 SANYA-7 AMB Questionnaire SANYA-7 Date SANYA - 7 assessed: 11/24/23 Source: Developed by Lynette Barahona B.W. Sulaiman, Anish Ramirez and colleagues, with an educational joselin from [employer]. Review of Systems Const Denies chills, Denies fatigue, Denies fever(s), Denies headache(s) and Denies weakness ENT Denies dizziness and Denies headache(s) Card Denies chest pain, Denies lightheadedness, Denies dyspnea and Denies other (Palpitations) Resp Denies cough, Denies dyspnea, Denies wheezing and Denies other ( shortness of breath) Musc Denies numbness and Denies tingling Neuro Denies dizziness, Denies headache(s), Denies numbness, Denies tingling, Denies paresthesias and Denies weakness Psych Denies anxiety and Denies depression Endo Denies fatigue Aller/Immun Denies wheezing Physical exam (Primary Care) Vital Signs: Last Vital Signs Pulse 103 H 02/26/24 14:44 BP 112/68 02/26/24 14:44 Pulse Ox 98 02/26/24 14:44 Oxygen Delivery Method Room Air 02/26/24 14:44 BMI result Body Mass Index 25.6 Tobacco/Smoking Status: Tobacco use Status Tobacco use date assessed 02/26/24 02/26/24 14:52 Patient Tobacco Use Status Never used Tobacco 02/26/24 14:44 e-Cigarette/Vaping Use Never Used 02/26/24 14:44 Thrive Assessment: Date of Thrive Assessment Date Thrive assessed 11/24/23 02/26/24 14:44 Const General: no acute distress and well developed Nutritional Appearance: well nourished Orientation/consciousness: patient oriented x3 HENMT Other: When?cm?lymph?node?at?right?posterolateral?neck. Mobile Stable?to?palpation Head: Yes normocephalic and Yes atraumatic Eyes General: appearance normal, both eyes and all related structures Pupils: Equal, round and reactive pupils present EOM: EOMs intact bilaterally Resp Effort & Inspection: normal respiratory effort Auscultation: clear to auscultation bilaterally Cardio Rate: regular rate Rhythm: regular rhythm Heart sounds: S1 normal heart sound present, S2 normal heart sound present, no gallops, no murmurs and no rubs Neuro General: patient oriented x3 and gait normal Cranial nerves: Yes Equal, round and reactive pupils present Psych Affect: normal affect Assessment and Plan Assessment & Plan (1) Neck mass: Code(s): R22.1 - Localized swelling, mass and lump, neck Plan: Follow-up?ultrasound?showed: ?IMPRESSION: 0.7 x 0.3 x 0.6 cm lymph node in the area indicated by the patient in the right posterior neck, previously measured 1.1 x 0.3 x 0.9 cm. Lymph?node?which?has?decreased?slightly?in?size.??Stable. Reassured?patient.??She?will?let?me?know?if?anything?changes Coding Level of Care Code Est Pt Level 3 (71081) Diagnoses Neck mass R22.1
[2024-02-26 14:44] VITALS: BP 112/68; PULSE 103; O2SAT 98; BMI 25.6
== END 2024-02-26 15:10 | disposition home or self-care (01) ==
PROVIDERS: PCP Family Medicine; Visit Provider Family Medicine
DX: R22.1 Localized swelling, mass and lump, neck (principal)
CPT/HCPCS: 99213

== ENCOUNTER 2024-10-08 10:42 | Outpatient (REF) | payer OTHER, SELFPAY ==
[2024-10-08 11:51] LABS: MANUAL DIFF FLAG NO
[2024-10-08 11:57] LABS: Basophils Absolute Auto 0.1 X10*3/uL (0.0-0.2); Basophils Percent Auto 1.5 % (0-2); Eosinophils Absolute Auto 0.1 X10*3/uL (0.0-0.4); Eosinophils Percent Auto 2.2 % (0-4); Hematocrit 39.3 % (37.0-47.0); Hemoglobin 13.2 g/dl (12.0-16.0); Imm Gran Abs Auto 0.02 X10*3/uL (0.00-0.03); Imm Gran Pct Auto 0.3 % (0.0-0.4); Lymphocytes Absolute Auto 2.4 X10*3/uL (1.2-4.9); Lymphocytes Percent Auto 40.1 % (20-40); Mean Corpuscular HGB Conc 33.6 g/dl (31.0-35.0); Mean Corpuscular Hemoglobin 29.4 pg (27.0-33.0); Mean Corpuscular Volume 87.5 fL (80.0-98.0); Mean Platelet Volume 9.1 fL (9.4-12.3); Monocytes Absolute Auto 0.5 X10*3/uL (0.1-1.2); Monocytes Percent Auto 8.6 % (2-11); Neutrophils Absolute Auto 2.8 x10*3/uL (2.0-8.3); Neutrophils Percent Auto 47.3 % (45-73); Platelet Count 412 X10*3/uL (160-400); Red Blood Count 4.49 X10*6/uL (4.20-5.50); Red Cell Distribution Width 13.3 % (11.0-16.0); White Blood Count 5.9 X10*3/uL (4.8-10.8)
[2024-10-08 13:19] LABS: Alanine Aminotransferase 14 U/L (0-31); Albumin Level 3.8 g/dL (3.5-5.0); Alkaline Phosphatase 65 U/L (39-117); Anion Gap 10 (12-20); Aspartate Amino Transferase 15 U/L (5-31); Bilirubin Total 0.4 mg/dL (0.0-1.0); Blood Urea Nitrogen 11 mg/dL (9-16); Calcium 9.3 mg/dL (8.4-10.2); Carbon Dioxide 24 mmol/L (22-29); Chloride 112 mmol/L (96-108); Cholesterol 216 mg/dL (<200); Estimated Glomerular Filt Rate > 60; Glucose Fasting 84 mg/dL (60-99); HDL Cholesterol 72 mg/dL (>40); LDL Cholesterol Calculated 127 mg/dL (<100); Potassium 4.2 mmol/L (3.3-5.1); Sodium 142 mmol/L (135-145); Total Protein 7.3 g/dL (6.5-8.0); Triglycerides 87 mg/dL (<150)
[2024-10-08 13:23] LABS: TSH reflex Free T4 0.94 uIU/mL (0.32-4.0)
[2024-10-08 14:28] LABS: Appearance Urine Cloudy; Color Urine Yellow; Glucose Urine UA Negative (Negative); Leukocyte Esterase Urine Moderate (2+) (Negative); Nitrite Urine Negative (Negative); PH 6.5 (5.0-9.0); Specific Gravity - Urine 1.025 (1.005-1.025); UMIC TRIGGER UA YES; Urine Blood Small (1+) (Negative); Urine Ketones Negative (Negative); Urine Protein Trace mg/dL (Neg-Trace)
[2024-10-08 14:37] LABS: Bacteria Urine 4+ (None Seen); Hyaline Casts Urine 0-2 /LPF (0-2); Squamous Epithelial Cell Urine >20 /HPF (0-2); WBC Urine >50 /HPF (0-5)
[2024-10-08 14:45] LABS: Creatinine Urine 151.43 mg/dL; Microalbum/Creatinine Ratio Ur 10.5 ug/mg cr (<30)
== END 2024-10-08 10:43 | disposition home or self-care (01) ==
LOC: HO.WFDLDS 10:42
PROVIDERS: Visit Provider Family Medicine
DX: Z00.00 Encounter for general adult medical examination without abnormal findings (principal); I10 Essential (primary) hypertension; R10.9 Unspecified abdominal pain
CPT/HCPCS: 36415; 80053; 80061; 81001; 81003; 81025; 82043; 82570; 84443; 85025; 87086

== ENCOUNTER 2024-10-08 12:13 | Outpatient (AMB) | payer OTHER, SELFPAY ==
--- NOTE | 2024-10-08 12:16 | MHC.OFFVIS ---
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 She reports new onset associated frequent urination and new onset vaginal odor with whitish-yellow discharge. She notes frequent UTI. She was treated for UTI at an urgent care last month and earlier this month. She experience similar signs and symptoms when she had UTI. She denies any other symptoms. She is on OCP which she takes daily. LMP was early last month; she gets her cycle at the beginning of each month; has not had it this month. She did not take her OCP for 2 weeks last month, after she ran out of the medication and waited for refills. [facility] Medical History Cataracts, both eyes Family History (Updated 02/26/24 @ 14:47 by Shruthi Jacinto CMA) Father Mental health disorder Mother Mental health disorder Social History Housing: House Patient Tobacco Use Status: Never used Tobacco e-Cigarette/Vaping Use: Never Used Second Hand Smoke Exposure: No service: No Current occupational status: employed Cognitive needs: No Hearing needs: No Vision needs: No Female Reproductive History Menstrual Date of last menstrual period: 08/24/24 Review of Systems Const Details: Const Denies chills, Denies fatigue, Denies fever(s), Denies headache(s) and Denies weakness ENT Denies dizziness and Denies headache(s) Card Denies chest pain, Denies lightheadedness, Denies dyspnea and Denies other (Palpitations) Resp Denies cough, Denies dyspnea, Denies wheezing and Denies other ( shortness of breath) GI Reports as per HPI Reports as per HPI Musc Denies abnormal gait, Denies myalgias, Denies arthralgias, Denies numbness and Denies tingling Skin/Breast Denies rash, Denies unusual bruising and Denies wounds Neuro Denies abnormal gait, Denies dizziness, Denies headache(s), Denies memory loss, Denies numbness, Denies Sensory deficit (Neuro), Denies tingling and Denies weakness Psych Denies anxiety, Denies depression, Denies memory loss Endo Denies cold intolerance, Denies fatigue, Denies heat intolerance, Denies polydipsia and Denies polyuria Aller/Immun Denies wheezing Physical Exam Vital Signs: Last Vital Signs Temp 98.3 F 10/08/24 12:24 Pulse 69 10/08/24 12:24 Resp 16 10/08/24 12:24 BP 117/64 10/08/24 12:24 Pulse Ox 100 10/08/24 12:24 Oxygen Delivery Method Room Air 10/08/24 12:24 BMI result Body Mass Index 28.6 Const Other: General: no acute distress and well developed Nutritional Appearance: well nourished Orientation/consciousness: patient oriented x3 HENMT Head: Yes normocephalic and Yes atraumatic Eyes General: appearance normal, both eyes and all related structures Pupils: Equal, round and reactive pupils present EOM: EOMs intact bilaterally Resp Effort & Inspection: normal respiratory effort Auscultation: clear to auscultation bilaterally Cardio Rate: regular rate Rhythm: regular rhythm Heart sounds: S1 normal heart sound present, S2 normal heart sound present, no gallops, no murmurs and no rubs GI Palpation (GI): No Abdominal aortic bruit present, Soft to palpation, tender right lower quadrant and suprapubic region, No hepatosplenomegaly present and No Rebound tenderness present Auscultation: normal bowel sounds General: Yes no CVA tenderness Back/Spine/Pelvis Back: no CVA tenderness Cervical Spine: cervical ROM normal and No Cervical spine tenderness Thoracic/Lumbar Spine: thoraco-lumbar ROM normal, No pain with thoraco-lumbar ROM, No thoracic spinal tenderness and No lumbar spinal tenderness Extrem General: Yes normal to inspection, No edema and No calf tenderness Skin General: warm and dry. Normal skin color. Normal skin turgor Neuro General: patient oriented x3, gait normal and no focal neuro deficit Cranial nerves: Yes Equal, round and reactive pupils present Cognition (Neuro): normal cognition Gait exam (Neuro): Normal gait present Sensory Exam: No Sensory deficit (Neuro) Psych Appearance: grossly normal Affect: normal affect Attitude: cooperative Thought process: Normal thought process present Results AMB Test Urine AMB Test Urine Negative Last Edit by Sabrina Gomez on 10/08/24 13:39 AMB Urinalysis, Automated UA Leukoctes 3 [place]/uL Last Edit by Sabrina Gomez on 10/08/24 13:44 UA Nitrite Negative Last Edit by Sabrina Gomez on 10/08/24 13:44 UA Urobilinogen 17 mg/dL Last Edit by Sabrina Gomez on 10/08/24 13:44 UA Protein 015 mg/dL Last Edit by Sabrina Gomez on 10/08/24 13:44 UA pH 6.6 Last Edit by Sabrina Gomez on 10/08/24 13:44 UA Blood 10 [place]/uL Last Edit by Sabrina Gomez on 10/08/24 13:44 UA Specific [place] 1.020 Last Edit by Sabrina Gomez on 10/08/24 13:44 UA Ketone Negative Last Edit by Sabrina Gomez on 10/08/24 13:44 UA Bilirubin 0 mg/dL Last Edit by Sabrina Gomez on 10/08/24 13:44 UA Glucose 0 mg/dL Last Edit by Sabrina Gomez on 10/08/24 13:44 Results Reviewed Results Reviewed: Laboratory Last Values Urine pH (Auto) 6.6 10/08/24 12:56 Specific [place] (Auto) 1.020 10/08/24 12:56 Urine Protein (Auto) 015 mg/dL 10/08/24 12:56 Glucose (UA)(Auto) 0 mg/dL 10/08/24 12:56 Urine Ketones (Auto) Negative 10/08/24 12:56 Urine Blood (Auto) 10 [place]/uL 10/08/24 12:56 Urine Nitrite (Auto) Negative 10/08/24 12:56 Urine Bilirubin (Auto) 0 mg/dL 10/08/24 12:56 Urine Urobilinogen (Auto) 17 mg/dL 10/08/24 12:56 Leukocyte Esterase (Auto) 3 [place]/uL 10/08/24 12:56 Tst Clinic Negative 10/08/24 12:56 Assessment & Plan Assessment & Plan (1) Abdominal pain: Code(s): R10.9 - Unspecified abdominal pain Category: Medical Plan: Tender right lower abdominal quadrant and suprapubic region Urine dip is positive for WBCs and RBCs Urine hCG is negative UTI is likely. Macrobid as prescribed. May take Tylenol ibuprofen for pain or discomfort Will send urine sample to the lab for culture and sensitivity. Will make changes as needed Follow-up with worsening or new symptoms Verbalized understanding and agreed with treatment plan (2) UTI (urinary tract infection): Code(s): N39.0 - Urinary tract infection, site not specified Category: Medical Plan: Plan as above Orders: Orders AMB Urinalysis Automated Today Z13.9 - Encounter for screening, unspecified AMB HCG Urine Test Today R10.9 - Unspecified abdominal pain UA CC w/rflx Micro + Cult Today R10.9 - Unspecified abdominal pain Medications: New nitrofurantoin monohyd/m-cryst 100 mg (Macrobid) must administer with a meal/food 100 mg PO Q12H 10 caps 0RF 5 days Coding Level of Care Code Est Pt Level 4 (69467) Diagnoses Abdominal pain R10.9 UTI (urinary tract infection) N39.0
[2024-10-08 12:24] VITALS: BP 117/64; PULSE 69; RESP 16; TEMP 36.8; O2SAT 100; BMI 28.6
== END 2024-10-08 13:28 | disposition home or self-care (01) ==
PROVIDERS: PCP Family Medicine; Visit Provider Nurse Practitioner Family
DX: R10.9 Unspecified abdominal pain (principal); N39.0 Urinary tract infection, site not specified; Z13.9 Encounter for screening, unspecified

== ENCOUNTER 2024-10-08 12:56 | Outpatient (REF) | payer OTHER, SELFPAY | END 2024-10-08 12:57 | disposition home or self-care (01) | LOC: HO.LAB 12:56 | PROVIDERS: Visit Provider Nurse Practitioner Family | DX: Z13.89 Encounter for screening for other disorder (principal) ==

== ENCOUNTER 2024-10-29 08:48 | Outpatient (AMB) | payer OTHER, SELFPAY ==
[2024-10-29 08:54] VITALS: BP 118/66; PULSE 78; O2SAT 98; BMI 28.3
--- NOTE | 2024-10-29 08:54 | A.OFFPC_ITS ---
Vital Signs 10/29/24 08:54 Height 5 ft 3 in Weight 160 lb BMI 28.3 BP 118/66 Blood Pressure Location Rt brachial Position Sitting Pulse 78 Pulse Source Pulse Oximeter Pulse Oximetry (%) 98 Intake Visit Reasons: PE- NEEDS COMPLETE PHQ9 Intake Note: pt is here for PE Clinical Informatics Physician Required: No Accompanied by: Self / Same As Patient Allergies No Known Allergies Allergy (Verified 10/29/24 08:54) Tobacco use date assessed: 10/29/24 Dental Screening Dental Screen Date: 10/29/24 Did you have a dental visit in the last 12 months?: Yes Did you have a dental problem in the last 6 months where you did not have access to dental care?: No Was dental information given to patient?: Patient has dentist HPI PE- NEEDS COMPLETE PHQ9 HPI Details 24 y/o female presents for a CPE with f/ u labs and health maintenance. Labs drawn 10/08/24. Reviewed labs with pt. Triglycerides 87. TC 216. LDL 127. HDL 72. Pt notes she had went to [facility] for abd. pain and they had seen an ovarian cyst. Pt reports headaches. Denies any sinus pain/pressure. Does note nausea. She states she has not been sleeping well. [facility] Medical History Cataracts, both eyes Surgical History No pertinent past surgical history Family History Father Mental health disorder Mother Mental health disorder Social History Housing: House Patient Tobacco Use Status: Never used Tobacco e-Cigarette/Vaping Use: Never Used Second Hand Smoke Exposure: No service: No Current occupational status: employed Cognitive needs: No Hearing needs: No Vision needs: No Questionnaire PHQ-9 Over the last 2 weeks, how often have you been bothered by any of the following problems? 1. Little interest or pleasure in doing things: several days 2. Feeling down, depressed, or hopeless: not at all 3. Trouble falling or staying asleep, or sleeping too much: several days 4. Feeling tired or having little energy: several days 5. Poor appetite or overeating: not at all 6. Feeling bad about yourself - or that you are a failure or have let yourself or your family down: not at all 7. Trouble concentrating on things, such as reading the newspaper or watching television: not at all 8. Moving or speaking so slowly that other people could have noticed. Or the opposite - being so fidgety or restless that you have been moving around a lot more than usual: not at all 9. Thoughts that you would be better off or of hurting yourself in some way: not at all Total score: 3 Depression Screening Interpretation: Negative Depression Screening Done: Yes 29898 - PHQ-9 Billing: Yes Source: Developed by Drs. Gumaro Cardenas, Lynette Hilario, Anish Ramirez and colleagues, with an educational joselin from [employer]. Thrive Questionnaire Date Thrive assessed: 10/29/24 I am a: Patient What is your living situation today?: I have a steady place to live Within the past 12 months, did the food you bought not last and you didn't have the money to get more?: Never true Within the past 12 months, did you worry whether your food would run out before you got money to buy more?: Never true Do you have trouble paying for medicines?: No Do you have trouble getting transportation to medical appointments?: No Do you have trouble paying your heating and electricity bill?: No Do you have trouble taking care of your child, family member or friend?: No Do you have trouble with day-to-day activities such as bathing, preparing meals, shopping, managing finances, etc.?: No Are you currently unemployed and looking for a job?: No Are you interested in more education?: No Please select the resources that you would like help with: None Currently or been in a relationship where the following occur: No concerns reported THRIVE Score: 0 AUDIT C Alcohol Use Questionnaire (AUDIT-C) 1. How often do you have a drink containing alcohol?: Never 3. How often do you have six or more drinks on one occasion?: Never Total Score: 0 Score Reviewed/Action Taken: Yes SANYA-7 AMB Questionnaire SANYA-7 Date SANYA - 7 assessed: 10/29/24 Feeling nervous, anxious, or on edge: 1 = Several days Not being able to stop or control worryin = Not at all Worrying too much about different things: 0 = Not at all Trouble relaxin = Not at all Being so restless that it is hard to sit still: 1 = Several days Becoming easily annoyed or irritable: 0 = Not at all Feeling afraid as if something awful might happen: 0 = Not at all Total SANYA-7 score (0-4 normal; 5-9 mild; 10-14 moderate; 15-21 severe): 2 Source: Developed by Drs. Gumaro Cardenas, Lynette Hilario, Anish Ramirez and colleagues, with an educational joselin from [employer]. SANYA-7 Assessment Billing SANYA-7 Assessment Tool: SANYA-7 Assessment 23821 Review of Systems Const Denies fatigue and Reports headache(s) Eyes Denies change in vision ENT Reports headache(s) Card Denies dyspnea Resp Denies cough, Denies dyspnea, Denies wheezing and Denies other (shortness of breath) GI Denies abdominal pain, Denies melena, Denies hematochezia, Denies change in bowel habits, Denies dyspepsia and Denies nausea Denies hematuria and Denies dysuria Musc Denies numbness and Denies tingling Skin/Breast Denies rash, Denies unusual bruising and Denies wounds Neuro Reports headache(s), Denies numbness, Denies Sensory deficit (Neuro) and Denies tingling Psych Denies anxiety and Denies depression Endo Denies fatigue Govind/Lymph Denies easy bleeding and Denies easy bruising Aller/Immun Denies wheezing Physical exam (Primary Care) Vital Signs: Last Vital Signs Pulse 78 10/29/24 08:54 BP 118/66 10/29/24 08:54 Pulse Ox 98 10/29/24 08:54 BMI result Body Mass Index 28.3 Tobacco/Smoking Status: Tobacco use Status Tobacco use date assessed 10/29/24 10/29/24 08:59 Patient Tobacco Use Status Never used Tobacco 10/29/24 08:59 e-Cigarette/Vaping Use Never Used 10/29/24 08:59 PHQ-9: PHQ-9 Score PHQ-9: Total score 3 10/29/24 08:59 Depression Screening Interpretation: Negative Thrive Assessment: Date of Thrive Assessment Date Thrive assessed 10/29/24 10/29/24 08:59 Currently or been in a relationship where the following occur: No concerns reported Const General: well developed; No acute distress Nutritional Appearance: well nourished Orientation/consciousness: patient oriented x3 [facility] Head: Yes normocephalic and Yes atraumatic Ears: hearing grossly normal bilaterally and TM's normal bilaterally General nose exam: Normal external nose present and Normal nares present Mouth: Normal oral and palatal mucosa present and moist mucous membranes Teeth and gingiva: dentition normal Throat: Yes posterior oropharynx normal Eyes General: appearance normal, both eyes and all related structures Pupils: Equal, round and reactive pupils present EOM: EOMs intact bilaterally Neck Neck: Yes normal visual inspection, Yes no lymphadenopathy and Yes trachea midline Thyroid: Thyroid normal Carotids: no bruits Lymphatic: no lymphadenopathy noted Chest Chest palpation & inspection: normal inspection of the chest Resp Effort & Inspection: normal respiratory effort Auscultation: clear to auscultation bilaterally Cardio Rate: regular rate Rhythm: regular rhythm Heart sounds: S1 normal heart sound present, S2 normal heart sound present, no gallops, no murmurs and no rubs Bruits: no abdominal aortic bruits and no carotid bruits GI Palpation (GI): No Abdominal aortic bruit present, Soft to palpation, nontender, No hepatosplenomegaly present and No Rebound tenderness present Auscultation: normal bowel sounds General: Yes no CVA tenderness Back/Spine/Pelvis Back: no CVA tenderness Cervical Spine: cervical ROM normal and No Cervical spine tenderness Thoracic/Lumbar Spine: thoraco-lumbar ROM normal, No pain with thoraco-lumbar ROM, No thoracic spinal tenderness and No lumbar spinal tenderness Skin Lesions: no lesions Rashes: no rashes Trauma: no lacerations or abrasions Wounds: no wounds Nails: normal Neuro General: patient oriented x3 and gait normal Cranial nerves: Yes Equal, round and reactive pupils present Cognition (Neuro): normal cognition Gait exam (Neuro): Normal gait present Motor exam (neuro): 5/5 motor strength present throughout Sensory Exam: No Sensory deficit (Neuro) Deep tendon reflexes (DTR's): Right patellar reflex intensity grade: 2+ and Left patellar reflex intensity grade: 2+ Extrem General: Yes normal to inspection and No edema Psych Appearance: grossly normal Affect: normal affect Attitude: cooperative Thought process: Normal thought process present Coding Level of Care Code Est Pt Level 3 (23274) Est Pt Prev Care 18-39y(03564) Diagnoses Adult general medical exam Z00.00 Elevated LDL cholesterol level E78.00 Screening for cervical cancer Z12.4 Headache R51.9 Cyst, ovarian N83.209 Additional Codes SANYA-7 Assessment Billing - SANYA-7 Assessment Tool: SANYA-7 Assessment 92479 ([id number]) PHQ-9 - 23889 - PHQ-9 Billing: Yes ([id number]) Assessment & Plan Assessment & Plan (1) Adult general medical exam: Code(s): Z00.00 - Encounter for general adult medical examination without abnormal findings Category: Medical Plan: 24-year-old?female?presents?for?complete?physical?exam Mild?headache?in?mildly?overweight?but?otherwise?exam?within?limits?today. Encouraged?healthy?diet?with?active?lifestyle?and?plenty?of?exercise (2) Elevated LDL cholesterol level: Code(s): E78.00 - Pure hypercholesterolemia, unspecified Category: Medical Plan: LDL?cholesterol?is?above?goal?of?less?than?100.??HDL?ratios?good Encouraged?diet?lower?in?saturated?fats?and?cholesterol (3) Screening for cervical cancer: Code(s): Z12.4 - Encounter for screening for malignant neoplasm of cervix Category: Medical Plan: Patient?has?never?had?Pap?smear?and?is?due Referred?to?OBGYN (4) Headache: Code(s): R51.9 - Headache, unspecified Category: Medical Plan: Patient?notes?tension?style?headache No?sinusitis Has?had?some?broken?soup?and?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 Increase?water?intake Can?use?Tylenol?or?ibuprofen?sparingly Will?give?her?a?note?for?work?and?through?the?weekend Call?or?return?to?office?if?not?improving (5) Cyst, ovarian: Code(s): N83.209 - Unspecified ovarian cyst, unspecified side Category: Medical Plan: Patient?had?abdominal?pain?and?went?to?[facility]?recently. She?was?told?she?had?a?benign?cyst. Abdominal?pain?resolved. Likely?function?cyst Will?get?reports Abdominal?pain?resolved. Orders: Referrals [employer] Referral Z12.4 - Encounter for screening for malignant neoplasm of cervix
== END 2024-10-29 09:38 | disposition home or self-care (01) ==
PROVIDERS: PCP Family Medicine; Visit Provider Family Medicine
DX: Z00.00 Encounter for general adult medical examination without abnormal findings (principal); E78.00 Pure hypercholesterolemia, unspecified; R51.9 Headache, unspecified; N83.201 Unspecified ovarian cyst, right side

== ENCOUNTER → 2024-10-29 08:48 | Outpatient (BNVA) | payer OTHER, SELFPAY | PROVIDERS: PCP Family Medicine; Visit Provider Family Medicine | DX: Z00.00 Encounter for general adult medical examination without abnormal findings (principal); E78.00 Pure hypercholesterolemia, unspecified; R51.9 Headache, unspecified; N83.209 Unspecified ovarian cyst, unspecified side | CPT/HCPCS: 96127 ==

== ENCOUNTER 2024-11-25 15:47 | Emergency (ER) | payer OTHER, SELFPAY ==
--- NOTE | ~2024-11-25 | US_ITS ---
CLINICAL HISTORY: ovarian torsion abscess? US pelvis transabdominal and transvaginal with Doppler Comparison: None Findings: Transabdominal scanning performed with Doppler. Anteverted uterus is 8.1 X 3.6 X 4.9 cm. Normal myometrium. No endometrial lesion, 6 mm thickness. Right ovary 3.4 X 1.5 X 1.5 cm, CORRESPONDS TO A VOLUME OF 4.0 ML. Left ovary 2.1 X 1.4 X 2.7 cm, CORRESPONDS TO A VOLUME OF 4.2 ML. Normal color Doppler with arterial/venous spectral tracing of both ovaries. No free fluid. IMPRESSION: 1. Unremarkable pelvic ultrasound with no evidence of ovarian torsion. This document has been electronically signed by: Danielle Craven MD on 11/25/2024 18:48:14
--- NOTE | ~2024-11-25 | CT_ITS ---
CLINICAL HISTORY: Abdominal pain. appendicitis? kidney stones? CT abdomen and pelvis with contrast Comparison: None Findings: No consolidation or effusion. Unremarkable gallbladder and solid organs. No urolithiasis. Ofdyfjsf-qu-oymmy colonic stool burden specifically within the ascending colon and fecalization of the distal ileum. Pelvic contents unremarkable. Normal appendix. No acute fracture. IMPRESSION: Wvbenjou-cx-mcoym colonic stool burden specifically within the ascending colon and fecalization of the distal ileum, Concerning for constipation. This document has been electronically signed by: Danielle Craven MD on 11/25/2024 22:26:27
[2024-11-25 16:03] VITALS: BP 130/82; PULSE 83; RESP 20; TEMP 36.9; O2SAT 99; BMI 28.3
[2024-11-25 16:21] LABS: Basophils Absolute Auto 0.1 X10*3/uL (0.0-0.2); Basophils Percent Auto 0.9 % (0-2); Eosinophils Absolute Auto 0.1 X10*3/uL (0.0-0.4); Eosinophils Percent Auto 1.7 % (0-4); Hematocrit 39.1 % (37.0-47.0); Hemoglobin 13.2 g/dl (12.0-16.0); Imm Gran Abs Auto 0.05 X10*3/uL (0.00-0.03); Imm Gran Pct Auto 0.6 % (0.0-0.4); Lymphocytes Absolute Auto 2.8 X10*3/uL (1.2-4.9); MANUAL DIFF FLAG NO; Mean Corpuscular HGB Conc 33.8 g/dl (31.0-35.0); Mean Corpuscular Hemoglobin 29.4 pg (27.0-33.0); Mean Corpuscular Volume 87.1 fL (80.0-98.0); Mean Platelet Volume 8.8 fL (9.4-12.3); Monocytes Absolute Auto 0.7 X10*3/uL (0.1-1.2); Monocytes Percent Auto 9.4 % (2-11); Neutrophils Percent Auto 51.4 % (45-73); Platelet Count 395 X10*3/uL (160-400); Red Blood Count 4.49 X10*6/uL (4.20-5.50); White Blood Count 7.8 X10*3/uL (4.8-10.8)
[2024-11-25 16:37] LABS: Appearance Urine Cloudy; Color Urine Yellow; Glucose Urine UA Negative (Negative); Leukocyte Esterase Urine Large (3+) (Negative); Nitrite Urine Negative (Negative); PH 6.5 (5.0-9.0); Specific Gravity - Urine 1.015 (1.005-1.025); UMIC TRIGGER UACC YES; Urine Blood Large (3+) (Negative); Urine Ketones Negative (Negative); Urine Pregnancy NEGATIVE (NEGATIVE); Urine Protein Negative (Neg-Trace)
[2024-11-25 16:38] LABS: UPreg QC Valid YES
[2024-11-25 16:42] LABS: Alanine Aminotransferase 13 U/L (0-31); Albumin Level 3.9 g/dL (3.5-5.0); Alkaline Phosphatase 71 U/L (39-117); Anion Gap 9 (12-20); Aspartate Amino Transferase 19 U/L (5-31); Bilirubin Total 0.2 mg/dL (0.0-1.0); Blood Urea Nitrogen 14 mg/dL (9-16); Calcium 9.5 mg/dL (8.4-10.2); Carbon Dioxide 23 mmol/L (22-29); Chloride 109 mmol/L (96-108); Creatinine Clr Calc Pharmacy 117.6; Estimated Glomerular Filt Rate > 60; Glucose Random 93 mg/dL (60-115); HCG Quantitative < 2 mIU/mL; Potassium 4.6 mmol/L (3.3-5.1); Sodium 136 mmol/L (135-145); Total Protein 7.4 g/dL (6.5-8.0)
--- OUTSIDE RECORDS SUMMARY | 2024-11-25 16:47 | XMS_ITS | Clinical Summary ---
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 84 tablet 3 2 Active Active Problems Problem Noted Date Diagnosed Date Personal history of COVID-19 05/03/2022 Overview (05/03/2022): 04/26/22 Dysmenorrhea 12/08/2019 Assessment & Plan (05/29/2022 4:16 PM EDT): Well managed on OCPs. Reviewed she is aging out. Good idea to find a [facility] in addition to adult PCP. Will send over 3 month supply plus refills for the year incase she has a difficult time finding a new provider. Assessment & Plan (01/18/2021 2:39 PM EDT): Well controlled on OCPs. Denies side effects or serious adverse effects. She did have a migraine last fall with blurry vision however, this has not happened again. If she continues to have migraines with visual symptoms she will call me and we can discuss alternative options without estrogen. Refill not needed today but ok to fill until next [facility]. 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 Adjustment disorder 06/26/2017 01/19/20 21 Pain in left knee 06/26/2017 01/18/2021 Pain in right knee 06/26/2017 1 Immunizations Immunization Administration Dates Next Due DTaP 08/15/2005, 3,02/10/2002,12/09,2001 H1N1 07/23/2009 HPV, Quadrivalent 05/01/2015,06/03/2014,04/01/20 14 Hep A, ped/adol 09/16/2018,06/25/2017 Hep B, ped/adol 02/10/2002,2001,2001 Hib (PRP-T) 11/08/2002, 2,2001,10/09 IPV 08/15/2005, 3,2001,10/09 Influenza Whole 07/23/2009 Influenza, injectable, MDCK, preservative free, quadrivalent 12/16/2011,08/27/2010,09/22/2009 Influenza, injectable, quadrivalent 08/27/2010,1 11/23/2008 Influenza, injectable, quadr ivalent, preservative free 08/17/2020,11/12/2019,09/16/2018,06/21,12/16/2011 MMR 08/15/2005,08/09/2002 Meningococcal Conj (Menactra) MCV4P 09/16/2018,0 12/28/2012 Pneumococcal Conjugate 11/08/2002,2001,2001,10/09 Tdap 12/28/2012 Varicella 08/27/2010,08/09/2002 Family History Medical History Relation Name Comments Heart attack Maternal Grandfather Pneumonia Maternal Grandmother Stroke Paternal Grandfather Irritable bowel syndrome Sister 1 Carolina Relation Name Status Comments Father Alive Healthy Maternal Grandfather Heart a ttack age 51 diagnosed with HEART DISEASE NOS Maternal Grandmother pneumon ia Mother Alive seasonal allerg ies Other Alive Siblings: Healt hy Paternal Grandfather Alive stroke Paternal Grandmother diagnos ed with MALIGNANT NEOPLASM NOS Sister 1 Carolina Alive Sister 2 Jessy Alive Sister 3 Dennise Alive Social History Tobacco Use Types Packs/Day Years Used Date Smoking Tobacco: Never Smokeless Tobacco: Never Tobacco Cessation:Counseling Given: No Alcohol Use Standard Drinks/Week Comments No 0 (1 standard drink = 0.6 oz pur e alcohol) Hunger/Food Answer Date Recorded In the last 12 months, did y ou or your family ever eat less than you felt you should because there wasn't enough money for food? No 01/18/2021 Stable Housing Answer Date Recorded Are you worried that in the next 2 months you may not have stable housing? No 01/18/2021 Transportation Concerns Answer Date Rec orded In the last 12 months, have you or your family ever had to go without healthcare because you didn't have a way to get there? No 01/18/2021 Hazards in Home Answer Date Recorded Think about the place you li ve. Do you have problems with any of the following? Pests (mice or roaches), mold, no/not working smoke detectors, water leaks, no window guards. No 2020 Financing Utilities Answer Date Recorde d In the last 12 months, has t he electric, gas, oil, or water [employer] threatened to shut off your services in your home? No 01/18/2021 Safety at Home Answer Date Recorded Are you or your family worried about feeling saf e in your home? No 01/18/2021 Outside Support Answer Date Recorded Do you feel that you need mo re support from other people or programs to help you care for yourself or your family? No 01/18/2021 Understanding Health Concerns Answer Da te Recorded Do you need help understandi ng your or your child's healthcare needs (diagnosis, medications, plan, etc.)? No 01/18/2021 Financing Health Concerns Answer Date R ecorded In the last 12 months, was t here a time when your child needed to see a doctor or get medications or supplies but could not because of cost? No 01/18/2021 Missing School or Work Answer Date Jian rded Did you or your child miss s chool or work because of a health problem that could have been avoided? No 01/18/2021 Comments No Sex and Gender Information Value Date Recorded Sex Assigned at Not on file Legal Sex Female 6:19 PM EDT Gender Identity Not on file Sexual Orientation Straight 11/12/2019 3: 39 PM EST Last Filed Vital Signs Vital Sign Reading Time Taken Comments Blood Pressure 112/64 05/29/2022 3:45 PM EDT Pulse - - Temperature 37.6 ??C (99.6 ??F) 05/03/2022 3:42 PM ED T Respiratory Rate - - Oxygen Saturation - - Inhaled Oxygen Concentration - - Weight 57.5 kg (126 lb 12.8 oz) 05/29/2022 3:45 PM EDT Height 162.6 cm (5' 4 ) 05/29/2022 3:45 PM EDT Body Mass Index 21.77 05/29/2022 3:45 PM EDT Plan of Treatment Health Maintenance Due Date Last Done Comments Men B Vaccine (1 of 2 - Standard) 2017 DTaP,Tdap,and Td Vaccines (7 - Td or Tdap) 12/28/2022 12/28/2012, 08/15/2005, 11/08/2002, Additional history exists Influenza Vaccines (#1) 2024 08/17/20, 11/12/2019, 09/16/2018, Additional history exists COVID-19 Vaccine (2023-2 5 season) 2024 Hepatitis B Vaccines Completed 02/10/2002, 2001, 2001 HIB Vaccines Completed 11/08/2002, 01/19, 2001, Additional history exists Pneumococcal Vaccine Completed 11/08/2002, 02/10/2002, 2001, Additional history exists IPV Vaccines Completed 08/15/2005, 01/19, 2001, Additional history exists MMR Vaccines Completed 08/15/2005, 08/09/2002 Varicella Vaccines Completed 08/27/2010, 08/09/2002 HPV Vaccines Completed 05/01/2015, 05/20, 04/01/2014 Hepatitis A Vaccines Completed 09/16/2018, 06/25/20 17 Meningococcal Vaccine Completed 09/16/2018, 013 Procedures * Due to [place] state law, this organization might not be sharing sensitive test results. Procedure Name Priority Date/Time Associated Diagnosis Comments CHLAMYDIA AND GONORRHEA, AMPLIFIED Routine 05/29/2022 4:26 PM EDT Dysmenorrhea from Last 3 Months or Most Recently Relevant to Health Maintenance Results * Due to [place] state law, this organization might not be sharing sensitive test results. * Chlamydia and Gonorrhea, Amplified (05/29/2022 4:26 PM EDT) Chlamydia Trachomatis, DNA Probe NEGATIVE (NEG) [facility] Comment: No Chlamydia Trachomatis RNA detected in this patient's sample ? (REFERENCE RANGE/NORMAL VALUE: NOT DETECTED) ? Note: This test uses microsoft solutions architect- mediated amplification method to detect rRNA from C. Trachomatis URINE GC AMP PROBE NEGATIVE (NEG) [facility] Comment: No Neisseria Gonorrhoeae RNA detected in this patient's sample ? (REFERENCE RANGE/NORMAL VALUE: NOT DETECTED) ? NOTE: This test uses microsoft solutions architect-mediated amplification method to detect rRNA from N.Gonorrhoeae. A negative result does not preclude infection. In the case of a negative urine result, testing of an endocervical(female) or urethral (male) specimen is recommended if there is high clinical suspicion of infection. Due to very high sensitivity of Nucleic Acid Amplification Test, false positive results may occur. Therefore, specimen handling is extremely important. In patients in whom the disease is unlikely, additional sample for testing should be considered after an initial positive result. The performance characteristics of this test have not been evaluated in children. The Aptima Combo2 assay is not intended for the evaluation of suspected sexual abuse or for other medico-legal indications. The ordering provider should assess if the patient had consensual sex without risk of sexual abuse. Consult the [facility] if needed. Contact phone number . Therapeutic failure or success cannot be determined with the Aptima Combo2 assay since nucleic acid may persist following appropriate antimicrobial therapy. The Centers for Disease Control and Prevention (CDC) recommends confirmatory retesting using culture or a different nucleic acid amplification test when positive results occur, if indicated. Testing performed or reported by [facility], a Service of [facility], [facility] [place] [address] Rodríguez Connors MD, Supervisor Braiding [facility]# [id number] Urine (Urine) 05/29/2022 4:2 6 PM EDT 05/29/2022 10:29 PM EDT Emi [place] MICROBIOLOGY - GENER AL ORDERABLES Final Result CORNELL from Last 3 Months or Most Recently Relevant to Health Maintenance Insurance [facility] NON PCC [facility] NON PCC
[2024-11-25 16:57] LABS: Bacteria Urine 3+ (None Seen); Epith (RTE) Cast Present; Hyaline Casts Urine 0-2 /LPF (0-2); UACC Culture Trigger YES; WBC Urine 21-50 /HPF (0-5)
[2024-11-25] MEDS: Ketorolac Tromethamine 30 MG/ML VIAL IM (17:18)
--- NOTE | 2024-11-25 17:33 | ED.GENADULT ---
HPI - General Adult General Chief complaint: Abdominal Pain Stated complaint: lower abd pain,vaginal bleeding Time Seen by Provider: 11/25/24 16:45 Source: patient Mode of arrival: ambulatory Limitations: no limitations History of Present Illness ED Provider: Peter JIMENEZ HPI narrative: 24 yold female with pmh of ovarian cysts, UTI, presens to the ED for lower abdominal pain with vaginal bleeding that began since friday. patient states her menstruation ended last week friday and than she started having vaginal bleeding again of this week. Patient denies any recent trauma, fever, chills, or dysuria. Patient states using two pads per day. patient denies any flank pain. Patient states bleeding clots, but bleeding is improving. Related Data Home Medications ?Medication ?Instructions ?Recorded ?Confirmed prednisone 10 mg tablet 10 mg PO DAILY 10/29/24 Previous Rx's ?Medication ?Instructions ?Recorded desogestrel 0.15 mg-ethinyl 1 tab PO QAM 84 days #84 tabs 10/12/24 estradiol 0.03 mg tablet (Enskyce) docusate calcium 240 mg capsule 240 mg PO BID PRN constipation #14 11/25/24 caps magnesium citrate 148 ml PO DAILY PRN constipation 11/25/24 #296 mL Allergies Allergy/AdvReac Type Severity Reaction Status Date / Time No Known Allergies Allergy Verified 11/25/24 16:05 Review of Systems Review of Systems: lower abdominal pain and vaginal bleeding Yes all other systems are reviewed and are negative PMFSH Past Medical History Medical History Cataracts, both eyes Surgical History No pertinent past surgical history Family History Family History Father Mental health disorder Mother Mental health disorder Social History Social History Housing: House Patient Tobacco Use Status: Never used Tobacco e-Cigarette/Vaping Use: Never Used Second Hand Smoke Exposure: No service: No Current occupational status: employed Cognitive needs: No Hearing needs: No Vision needs: No Physical Exam ED Vital Signs: Vital Signs - 24 hr 11/25/24 16:03 02/06/25 19:23 11/25/24 21:25 Temperature 98.4 F 98.5 F Pulse Rate 83 77 73 Respiratory Rate 20 18 18 Blood Pressure 130/82 123/74 116/85 Pulse Oximetry 99 98 99 Oxygen Delivery Method Room Air Room Air Room Air BMI result Body Mass Index 28.3 Const General: cooperative, healthy appearing, comfortable, no acute distress, well developed, alert, awake and Physically active Orientation/consciousness: patient oriented x3 [facility] Head: Yes normal to inspection, Yes No palpable skull fracture present, Yes normocephalic and Yes atraumatic Eyes General: appearance normal, both eyes and all related structures Neck Neck: Yes normal visual inspection, Yes full ROM, Yes no lymphadenopathy, Yes no meningeal signs, Yes trachea midline, Yes supple, No anterior neck swelling and No tender Chest Chest palpation & inspection: normal inspection of the chest and normal palpation of entire chest wall Resp Effort & Inspection: normal respiratory effort and able to speak in complete sentences Auscultation: clear to auscultation bilaterally Cardio Jugular venous distension: no JVD Heart sounds: S1 normal heart sound present and S2 normal heart sound present GI Inspection: Yes normal to inspection Palpation (GI): Tenderness to palpation present (GI) in the LLQ, in the RLQ and suprapubicly, no guarding and not rigid General: Yes no CVA tenderness Back/Spine/Pelvis Back: no CVA tenderness and No back tenderness Skin General skin exam: no rashes or lesions noted, elasticity normal and turgor normal Neuro General: patient oriented x3, gait normal, tone normal, moves all extremities, Normal light touch and pain sensation, no meningeal signs, no focal motor deficits, CN's II-XI intact bilaterally and normal sensation to monofilament Extrem General: Yes normal to inspection, Yes full ROM and Yes capillary refill normal Psych Appearance: grossly normal, well kempt and not disheveled Medications Administered Discontinued Medications Generic Name Dose Route Start Last Admin Trade Name Freq PRN Reason Stop Dose Admin Iohexol 100 ml 11/25/24 21:35 11/25/24 21:35 Iohexol 350 Mg/Ml 100 Ml Infus..Btl IV 11/25/24 21:36 85 ml ONCE ONE Administration Ketorolac Tromethamine 30 mg 11/25/24 17:06 11/25/24 17:18 Ketorolac Tromethamine 30 Mg/Ml Vial IM 11/25/24 17:07 30 mg ONCE ONE Administration Medical Decision Making Medical Decision Making [facility] Narrative: 23-year-old female presents to ED for lower abdominal pain vaginal bleeding. Patient states she is not supposed to be on menstruation. Patient states administration in the last week she starts bleeding again this week. Patient denies any flank pain fever or chills. Ultrasound ordered. Toradol ordered. 9:24pm: Ultrasound negative for torsion, tubo-ovarian abscess, ovarian cysts or fibroids. Pelvic exam negative for any active vaginal bleeding or hemorrhaging. Positive for dark brown/blood discharge. Negative for any CMT or adnexal tenderness. Patient is preferred to wait for results of STI swabs instead emperic treatment. Patient was swabbed for trich BV CTA NG and Haydee. Waiting for CT scan results. Signed out to KENNETH GARCIA. UA more dirty catch. Eleven the tiny squamous cells. Patient has similar presentation in 10/08/2024 where there was red blood cell white blood cell count and large amount of squamous cell and grew no bacteria and urine culture. Differential Diagnosis Differential Diagnoses: The differential diagnosis associated with the presentation includes (Dysfunctional uterine bleeding, fibroids, ovarian cyst rupture, pyelonephritis, UTI) Admission/Observation Consideration of admission/observation: Escalation of care including admission/observation considered Lab Data [facility] Lab Attestation statement: I reviewed the patient's lab results. 11/25/24 16:12 11/25/24 16:12 Labs: Lab Results 11/25/24 11/25/24 11/25/24 Range/Units 16:12 16:29 21:25 WBC 7.8 (4.8-10.8) X10*3/uL RBC 4.49 (4.20-5.50) X10*6/uL Hgb 13.2 (12.0-16.0) g/dl Hct 39.1 (37.0-47.0) % MCV 87.1 (80.0-98.0) fL MCH 29.4 (27.0-33.0) pg MCHC 33.8 (31.0-35.0) g/dl RDW 13.0 (11.0-16.0) % Plt Count 395 (160-400) X10*3/uL MPV 8.8 L (9.4-12.3) fL Immature Gran % (Auto) 0.6 H (0.0-0.4) % Neut % (Auto) 51.4 (45-73) % Lymph % (Auto) 36.0 (20-40) % Sandoval % (Auto) 9.4 (2-11) % Eos % (Auto) 1.7 (0-4) % Baso % (Auto) 0.9 (0-2) % Lymph # (Auto) 2.8 (1.2-4.9) X10*3/uL Sandoval # (Auto) 0.7 (0.1-1.2) X10*3/uL Eos # (Auto) 0.1 (0.0-0.4) X10*3/uL Baso # (Auto) 0.1 (0.0-0.2) X10*3/uL Abs Immat Gran (auto) 0.05 H (0.00-0.03) X10*3/uL Absolute Neuts (auto) 4.0 (2.0-8.3) x10*3/uL Absolute Nucleated RBC 0.000 (0.0-0.012) X10*3/uL Nucleated RBC % (auto) 0.0 (0.0-0.2) /100WBC Sodium 136 (135-145) mmol/L Potassium 4.6 (3.3-5.1) mmol/L Chloride 109 H (96-108) mmol/L Carbon Dioxide 23 (22-29) mmol/L Anion Gap 9 L (12-20) BUN 14 (9-16) mg/dL Creatinine 0.71 (0.5-1.4) mg/dL Estim Creat Clear Calc 117.6 Estimated GFR > 60 Random Glucose 93 (60-115) mg/dL Calcium 9.5 (8.4-10.2) mg/dL Total Bilirubin 0.2 (0.0-1.0) mg/dL AST 19 (5-31) U/L ALT 13 (0-31) U/L Alkaline Phosphatase 71 (39-117) U/L Total Protein 7.4 (6.5-8.0) g/dL Albumin 3.9 (3.5-5.0) g/dL Beta HCG, Quant < 2 mIU/mL Urine Color Yellow Urine Appearance Cloudy Urine pH 6.5 (5.0-9.0) Ur Specific [place] 1.015 (1.005-1.025) Urine Protein Negative (Neg-Trace) mg/dL Urine Glucose (UA) Negative (Negative) mg/dL Urine Ketones Negative (Negative) mg/dL Urine Blood Large (3+) H (Negative) Urine Nitrite Negative (Negative) Ur Leukocyte Esterase Large (3+) H (Negative) Urine RBC 6-10 H (0-2) /HPF Urine WBC 21-50 H (0-5) /HPF Ur Squamous Epith Cells 11-20 (0-2) /HPF Urine Bacteria 3+ (None Seen) Epithelial Casts Present Hyaline Casts 0-2 (0-2) /LPF Urine Test NEGATIVE (NEGATIVE) Chlam trachomat DNA PCR NOT DETECTED (Not Detect.) N.gonorrhoeae DNA (PCR) NOT DETECTED (Not Detect.) T. vaginalis (PCR) NOT DETECTED (Not Detect) Bact vaginosis (PCR) NEGATIVE (Negative) C. krusei/glabrata (PCR) NOT DETECTED (Not Detect) Haydee group (PCR) NOT DETECTED (Not Detect) Independent Interpretation I performed an independent interpretation of an: Ultrasound Radiology Impression Discussion of test interpretation with radiology: I have reviewed the radiologist's reading. Radiologist Impression: Findings: No consolidation or effusion. Unremarkable gallbladder and solid organs. No urolithiasis. Nhiowgnm-ld-kmjah colonic stool burden specifically within the ascending colon and fecalization of the distal ileum. Pelvic contents unremarkable. Normal appendix. No acute fracture. IMPRESSION: Aoytmpar-sh-qbnyw colonic stool burden specifically within the ascending colon and fecalization of the distal ileum, Concerning for constipation. This document has been electronically signed by: Danielle Craven MD on 11/25/2024 22:26:27 Independent Historian Clinical information obtained from an independent historian. History obtained from or confirmed by: Other (patient) Discharge Plan Discharge Clinical Impression: DUB (dysfunctional uterine bleeding), Constipation Patient Disposition: Home, Self-Care Instructions: Dysfunctional Uterine Bleeding (ED) Additional Instructions: Your CT scan shows a significant amount of right-sided constipation which could also be contributing to your pain. I recommend increasing fluid intake and fiber intake in your diet. Continue the MiraLax. I also recommend that you start magnesium citrate, half the bottle on day 1 and half a bottle on day 2. You may start docusate sodium as well for constipation Recommend follow-up with your primary care provider and OBGYN. Ultrasound came back negative for ovarian cysts, fibroids. Return to the ED immediately for any chest pain, shortness of breath, abdominal pain, flank pain, fever, chills, vaginal lesions, or any other concerning symptoms. CLINICAL HISTORY: ovarian torsion abscess? US pelvis transabdominal and transvaginal with Doppler Comparison: None Findings: Transabdominal scanning performed with Doppler. Anteverted uterus is 8.1 X 3.6 X 4.9 cm. Normal myometrium. No endometrial lesion, 6 mm thickness. Right ovary 3.4 X 1.5 X 1.5 cm, CORRESPONDS TO A VOLUME OF 4.0 ML. Left ovary 2.1 X 1.4 X 2.7 cm, CORRESPONDS TO A VOLUME OF 4.2 ML. Normal color Doppler with arterial/venous spectral tracing of both ovaries. No free fluid. IMPRESSION: 1. Unremarkable pelvic ultrasound with no evidence of ovarian torsion. This document has been electronically signed by: Danielle Craven MD on 11/25/2024 18:48:14 Dictated By: Danielle Craven MD Signed By: <Electronically signed by Danielle Craven MD in OV> 11/25/24 2019 Prescriptions: New docusate calcium 240 mg capsule 240 mg PO BID PRN (Reason: constipation) Qty: 14 0RF magnesium citrate Solution 148 ml PO DAILY PRN (Reason: constipation) Qty: 296 0RF No Action desogestrel-ethinyl estradiol [Enskyce] 0.15-0.03 mg tablet 1 tab PO QAM 84 Days Qty: 84 0RF prednisone 10 mg tablet 10 mg PO DAILY Stand Alone Forms: Work/School Release Interventions: ED Discharge Assessment Last Done: 11/25/24 23:04 Discharge Date/Time: 11/25/24 23:04 Print Language: Argentine
[2024-11-25 19:23] VITALS: BP 123/74; PULSE 77; RESP 18; TEMP 36.9; O2SAT 98
[2024-11-25 21:25] VITALS: BP 116/85; PULSE 73; RESP 18; O2SAT 99
[2024-11-25] MEDS: iohexoL 350 MG/ML 100 ML INFUS..BTL IV (21:35)
[2024-11-25 23:03] VITALS: BP 121/81; PULSE 65; RESP 16; TEMP 36.8; O2SAT 97
[2024-11-25 23:04] VITALS: BP 121/81; PULSE 65; RESP 16; TEMP 36.8; O2SAT 97
[2024-11-26 02:06] LABS: CT PCR NOT DETECTED (Not Detect.); NG PCR NOT DETECTED (Not Detect.)
[2024-11-26 11:24] LABS: Bacterial Vaginosis PCR NEGATIVE (Negative); Candida Group PCR NOT DETECTED (Not Detect); Candida glab krusei PCR NOT DETECTED (Not Detect); Trichomonas vaginalis PCR NOT DETECTED (Not Detect)
== END 2024-11-25 23:04 | disposition home or self-care (01) ==
PROVIDERS: Physician Assistant; Emergency Provider Emergency Medicine; PCP Family Medicine
DX: N93.8 Other specified abnormal uterine and vaginal bleeding (principal); K59.00 Constipation, unspecified; R10.2 Pelvic and perineal pain; Z79.899 Other long term (current) drug therapy
CPT/HCPCS: 36415; 74177; 76830; 76856; 80053; 81001; 81025; 81515; 84702; 85025; 87086; 87491; 87591; 93975; 96372; 99284; J1885; Q9967

== ENCOUNTER → 2024-11-25 16:53 | Outpatient (BNV) | payer OTHER, SELFPAY | PROVIDERS: Emergency Provider Emergency Medicine; PCP Family Medicine; Visit Provider Student in an Organized Health Care Education/Training Program | DX: R10.30 Lower abdominal pain, unspecified (principal); N93.9 Abnormal uterine and vaginal bleeding, unspecified | CPT/HCPCS: 76830; 76856; 93975 ==

== ENCOUNTER 2025-03-03 13:47 | Outpatient (REF) | payer OTHER, SELFPAY ==
--- OUTSIDE RECORDS SUMMARY | 2025-03-03 15:52 | XMS_ITS | Clinical Summary ---
Author Organization [facility] Address [address] [place] [phone] Phone Care Team Providers Care Electric Clock Mechanic Name Role Phone Unavailable Primary Care Provider [...] aging out. Good idea to find a RETORT LOADER in addition to adult PCP. Will send [...] today but ok to fill until next [facility]. Resolved Problems Problem Noted Date Diagnosed Date Resolved Date Abscess of Bartholin's gland 03/30/2018 01/18/2021 Overview (04/06/2018): Drained at [facility] 04/03/18 to f/u with Billposter Adjustment disorder 06/26/2017 01/19/20 21 Pain in [...] t he electric, gas, oil, or water [employer] threatened to shut off your services in [...] Completed 09/16/2018, 013 Procedures * Due to [place] state law, this organization might not be sharing sensitive test results. Procedure Name Priority Date/Time Associated Diagnosis Comments CHLAMYDIA AND GONORRHEA, AMPLIFIED Routine 05/29/2022 4:26 PM EDT Dysmenorrhea from Last 3 Months or Most Recently Relevant to Health Maintenance Results * Due to [place] state law, this organization might not be sharing sensitive test results. * Chlamydia and Gonorrhea, Amplified (05/29/2022 4:26 PM EDT) Chlamydia Trachomatis, DNA Probe NEGATIVE (NEG) [facility] Comment: No Chlamydia Trachomatis RNA detected in this patient's sample ? (REFERENCE RANGE/NORMAL VALUE: NOT DETECTED) ? Note: This test uses double spindle shaper operator- mediated amplification method to detect rRNA from C. Trachomatis URINE GC AMP PROBE NEGATIVE (NEG) [facility] Comment: No Neisseria Gonorrhoeae RNA detected in this patient's sample ? (REFERENCE RANGE/NORMAL VALUE: NOT DETECTED) ? NOTE: This test uses double spindle shaper operator-mediated amplification method to detect rRNA from N.Gonorrhoeae. [...] without risk of sexual abuse. Consult the [facility] if needed. Contact phone number . Therapeutic failure or success cannot be determined with the Aptima Combo2 assay since nucleic acid may persist following appropriate antimicrobial therapy. The Centers for Disease Control and Prevention (CDC) recommends confirmatory retesting using culture or a different nucleic acid amplification test when positive results occur, if indicated. Testing performed or reported by [facility], a Service of [facility], [facility] [place] [address] Rodríguez Connors MD, Explosive Ordnance Technician [facility]# [id number] Urine (Urine) 05/29/2022 4:2 6 PM EDT 05/29/2022 10:29 PM EDT Emi Madera MANAGING MANAGER LAB MICROBIOLOGY - GENER AL ORDERABLES Final Result CORNELL from Last 3 Months or Most Recently Relevant to Health Maintenance Insurance [facility] NON PCC [facility] NON PCC
--- OUTSIDE RECORDS SUMMARY | 2025-03-03 15:52 | XMS_ITS | Encounter Summary ---
Author Organization [facility] Address [address] [place] [phone] Phone Care Team Providers Care Job Service Specialist Name Role Phone Emi Madera MATERIAL CLERK Primary Care Provider U navailable Encounter Details Date Type Department Care Team (Late st Contact Info) Description 03/08/2018 Conversion Encounter [facility] [address] [address] Shelli Mueller MD [address] [place] [address] Social History Tobacco Use Types Packs/Day Years [...] on filedocumented in this encounter Care Teams Job Service Specialist Relationship Specialty Start Date End Date Emi Madera NP PCP - General Pediatrics 11/16/19 07/15/24 documented as of this encounter
[2025-03-04 09:41] LABS: Bacterial Vaginosis PCR NEGATIVE (Negative); Candida Group PCR NOT DETECTED (Not Detect); Candida glab krusei PCR NOT DETECTED (Not Detect); Trichomonas vaginalis PCR NOT DETECTED (Not Detect)
[2025-03-04 10:12] LABS: CT PCR NOT DETECTED (Not Detect.); NG PCR NOT DETECTED (Not Detect.)
[2025-03-09 15:19] LABS: HPV Genotype 16 Negative (Negative); HPV Genotype 18 Negative (Negative); HPV High Risk Negative (Negative)
== END 2025-03-03 13:48 | disposition home or self-care (01) ==
LOC: HO.LNP 13:47
PROVIDERS: PCP Family Medicine; Visit Provider Advanced Practice Midwife
DX: N94.6 Dysmenorrhea, unspecified (principal)
CPT/HCPCS: 81515; 87491; 87591; 87626; 88175

== ENCOUNTER 2025-03-03 13:47 | Outpatient (AMB) | payer OTHER, SELFPAY ==
--- NOTE | 2025-03-03 13:48 | MHC.OFFVIS ---
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 Bull Ladle: Pourer Bull Ladle Present (Yasemin) Accompanied by: Self / Same As Patient Allergies No Known Allergies Allergy (Verified 03/03/25 13:53) Medication List - Last Reconciled 03/03/25 by Carolina Reed CNM desogestrel-ethinyl estradiol 0.15-0.03 mg (Enskyce) 1 tab PO QAM 84 days docusate calcium 240 mg PO BID PRN magnesium citrate 148 mL PO DAILY PRN meloxicam 15 mg PO DAILY prednisone 10 mg PO DAILY tizanidine 4 mg PO BID Is last menstrual period known: Yes Last menstrual period: 02/08/25 Post menopausal: No Patient : No HPI HPI 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 She had been seen in the emergency room in October or November for pain on her right side and says she was told that there was an ovarian cyst there. She has been on control pills since she was much younger for heavy crampy periods but sometimes she is not sure if they are really helping anymore but she also notes that she has been on muscle relaxants for lower back pain and it has been making her kind of drowsy and groggy so she has missed a few pills she actually has missed about 4 pills she did have sex last night but she and her partner use condoms to be safe if she got she would continue the but would rather not get at this time discussed the OCPs and discussed the option of altering the formulation and/or dose versus other more long-term methods that might suppress ovulatory function more completely and therefore suppress menses even more as well but she would rather stay on the pills she is on and she is going to decide whether not she restarts the pills where she is or waits till the next menses I did discuss condom use with her she did use condoms when she had sex with her boyfriend since missing the pills. [facility] Medical History Cataracts, both eyes Surgical History No pertinent past surgical history Family History (Updated 03/03/25 @ 13:52 by Yasemin Elam MA) Father Mental health disorder Mother Mental health disorder Paternal Grandmother Breast cancer Social History Housing: House Patient Tobacco Use Status: Never used Tobacco e-Cigarette/Vaping Use: Never Used Second Hand Smoke Exposure: No service: No Current occupational status: employed Cognitive needs: No Hearing needs: No Vision needs: No Female Reproductive History Menstrual Age of Menarche: 13 Duration of menses: 6-7 days Date of last menstrual period: 02/08/25 control method: pills (Enskyce) Total pregnancies: 0 History of abnormal pap smear: No Physical Exam Vital Signs: Last Vital Signs BP 120/72 03/03/25 13:56 BMI result Body Mass Index 30.6 Const General: healthy appearing, comfortable, no acute distress, well developed and alert Nutritional Appearance: average body habitus Orientation/consciousness: patient oriented x3 Limitations: no limitations HEENT Head: Yes normocephalic Neck Neck: Yes normal visual inspection Chest Chest palpation & inspection: normal inspection of the chest Breast/axilla inspection: normal inspection of the breasts and normal inspection of the axillae Breast/axilla palpation: normal palpation of the breasts and normal palpation of the axillae Resp Effort & Inspection: normal respiratory effort GI Inspection: Yes normal to inspection, No Abdominal wall edema and No distended Palpation (GI): Soft to palpation and nontender Other: External exam within normal limits vagina pink and moist is some bloody tinged otherwise clear mucus in vagina from os and cervix was slightly friable with Pap cervix nulliparous pink smooth healthy appearing. Cervix long close thick mobile nontender uterus midposition mobile nontender difficult to feel outlined completely secondary to strong muscle tone adnexa nontender good tone with Kegel. Patient was very slightly tender on right side but nothing extreme General: Yes bladder normal to palpation External Female Exam: normal external appearance and normal appearance of the urethra Speculum Exam - Vagina: normal appearance of the vagina, normal palpation and normal vaginal discharge Speculum Exam - Cervix: normal appearance of the cervix, normal palpation and nontender Bimanual exam- vagina & uterus: normal bimanual exam, normal palpation, uterine size normal, bladder normal to palpation, consistency normal, normal palpation, uterine mobility normal, uterine shape normal, No Cervical tenderness present, non-tender and no cervical motion tenderness Bimanual Exam- Adnexa, other: normal adnexae, no masses, normal and No adnexal tenderness Neuro General: patient oriented x3 Results Reviewed Results Reviewed: Reviewed pelvic ultrasound and abdominal CAT scans from emergency room visit of this year patient had said she had been told that there was a small ovarian cyst on the right side there is none noted in the either report. Assessment & Plan Assessment & Plan (1) Screening for cervical cancer: Code(s): Z12.4 - Encounter for screening for malignant neoplasm of cervix Category: Medical (2) Cyst, ovarian: Comment: Was not noted on pelvic ultrasound or CAT scan in emergency room visit.... 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 She had been seen in the emergency room in October or November for pain on her right side and says she was told that there was an ovarian cyst there. She has been on control pills since she was much younger for heavy crampy periods but sometimes she is not sure if they are really helping anymore but she also notes that she has been on muscle relaxants for lower back pain and it has been making her kind of drowsy and groggy so she has missed a few pills she actually has missed about 4 pills she did have sex last night but she and her partner use condoms to be safe if she got she would continue the but would rather not get at this time discussed the OCPs and discussed the option of altering the formulation and/or dose versus other more long-term methods that might suppress ovulatory function more completely and therefore suppress menses even more as well but she would rather stay on the pills she is on and she is going to decide whether not she restarts the pills where she is or waits till the next menses I did discuss condom use with her she did use condoms when she had sex with her boyfriend since missing the pills. I refilled her pills with her. Also discussed the interaction with the muscle relaxant she is on. Additionally suggested checking out the [facility] website which is a practice she has a attended for exercises that might be shared on-site for her knee and back. I refilled her pills for her and we will see her in 1 year. Pap smear was done as well as testing for gonorrhea chlamydia trichomoniasis bacterial vaginosis and yeast it is possible that the bleeding was either from the blade of the speculum and with the Pap smear or also she is starting some withdrawal bleed from missing 4 days of pills. Medications: Refilled desogestrel-ethinyl estradiol 0.15-0.03 mg (Enskyce) 1 tab PO QAM 84 days 84 tabs 4RF Coding Level of Care Code New Pt Prev Care 18-39yr([id number] Diagnoses Screening for cervical cancer Z12.4 Cyst, ovarian N83.209 Screening for STD (sexually transmitted disease) Z11.3 Dysmenorrhea, unspecified N94.6
[2025-03-03 13:56] VITALS: BP 120/72; BMI 30.6
--- OUTSIDE RECORDS SUMMARY | 2025-03-03 14:28 | XMS_ITS ---
Author Name [facility] Organization Unknown Encounters Encounter Type Encounter Reason Primary Diagnosis Location Date Ambulatory [facility]. ([facility]) 09/14/2024
--- OUTSIDE RECORDS SUMMARY | 2025-03-03 14:28 | XMS_ITS | Clinical Summary ---
Author Organization [facility] Address [address] [place] [phone] Phone Care Team Providers Care Engineering Inspection Assistant Name Role Phone Unavailable Primary Care Provider [...] aging out. Good idea to find a LOGISTIC MANAGER in addition to adult PCP. Will send [...] today but ok to fill until next [facility]. Resolved Problems Problem Noted Date Diagnosed Date Resolved Date Abscess of Bartholin's gland 03/30/2018 01/18/2021 Overview (04/06/2018): Drained at [facility] 04/03/18 to f/u with Rotor Pilot Adjustment disorder 06/26/2017 01/19/20 21 Pain in [...] t he electric, gas, oil, or water [employer] threatened to shut off your services in [...] Completed 09/16/2018, 013 Procedures * Due to [place] state law, this organization might not be sharing sensitive test results. Procedure Name Priority Date/Time Associated Diagnosis Comments CHLAMYDIA AND GONORRHEA, AMPLIFIED Routine 05/29/2022 4:26 PM EDT Dysmenorrhea from Last 3 Months or Most Recently Relevant to Health Maintenance Results * Due to [place] state law, this organization might not be sharing sensitive test results. * Chlamydia and Gonorrhea, Amplified (05/29/2022 4:26 PM EDT) Chlamydia Trachomatis, DNA Probe NEGATIVE (NEG) [facility] Comment: No Chlamydia Trachomatis RNA detected in this patient's sample ? (REFERENCE RANGE/NORMAL VALUE: NOT DETECTED) ? Note: This test uses doll wig maker rooted hair- mediated amplification method to detect rRNA from C. Trachomatis URINE GC AMP PROBE NEGATIVE (NEG) [facility] Comment: No Neisseria Gonorrhoeae RNA detected in this patient's sample ? (REFERENCE RANGE/NORMAL VALUE: NOT DETECTED) ? NOTE: This test uses doll wig maker rooted hair-mediated amplification method to detect rRNA from N.Gonorrhoeae. [...] without risk of sexual abuse. Consult the [facility] if needed. Contact phone number . Therapeutic failure or success cannot be determined with the Aptima Combo2 assay since nucleic acid may persist following appropriate antimicrobial therapy. The Centers for Disease Control and Prevention (CDC) recommends confirmatory retesting using culture or a different nucleic acid amplification test when positive results occur, if indicated. Testing performed or reported by [facility], a Service of [facility], [facility] [place] [address] Rodríguez Connors MD, Cryptanalyst [facility]# [id number] Urine (Urine) 05/29/2022 4:2 6 PM EDT 05/29/2022 10:29 PM EDT Emi Madera DENTAL THERAPIST LAB MICROBIOLOGY - GENER AL ORDERABLES Final Result CORNELL from Last 3 Months or Most Recently Relevant to Health Maintenance Insurance [facility] NON PCC [facility] NON PCC
--- OUTSIDE RECORDS SUMMARY | 2025-03-03 14:28 | XMS_ITS | Encounter Summary ---
Author Organization [facility] Address [address] [place] [phone] Phone Care Team Providers Care Faa Certified Powerplant Mechanic Name Role Phone Emi Madera INSTRUCTOR KNITTING Primary Care Provider U navailable Encounter Details Date Type Department Care Team (Late st Contact Info) Description 03/08/2018 Conversion [facility]counter [facility] [address] [address] Shelli Mueller MD [address] [place] [address] Social History Tobacco Use Types Packs/Day Years Used Date Smoking Tobacco: Never Assessed Comments Unknown Sex and Gender Information Value Date Recorded Sex Assigned at Not on file Legal Sex Female 6:19 PM EDT Gender Identity Not on file Sexual Orientation Straight 11/12/2019 3: 39 PM EST documented as of this encounter Plan of Treatment Not on file documented as of this encounter Visit Diagnoses Not on filedocumented in this encounter Care Teams Faa Certified Powerplant Mechanic Relationship Specialty Start Date End Date Emi Madera NP PCP - General Pediatrics 11/16/19 07/15/24 documented as of this encounter
== END 2025-03-03 15:06 | disposition home or self-care (01) ==
LOC: HO.HWSM 13:47
PROVIDERS: PCP Family Medicine; Visit Provider Advanced Practice Midwife
DX: Z01.419 Encounter for gynecological examination (general) (routine) without abnormal findings (principal)
CPT/HCPCS: 99385; 99459